=== PATIENT | female | born 2000 | race Caucasian/White ===

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

== ENCOUNTER → 2021-06-11 13:22 | Outpatient (CLI) | payer OTHER, MEDICAID, SELFPAY ==
[2021-06-11 13:53] LABS: Pregnancy Test Urine Negative (Negative)
[2021-06-11 14:25] LABS: Alanine Aminotransferase 26 IU/L (<35); Albumin 4.8 g/dL (3.5-5.0); Albumin Globulin Ratio 1.5 (1.0-2.8); Alkaline Phosphatase 80 U/L (38-126); Aspartate Aminotransferase 29 IU/L (14-36); BUN Creatinine Ratio 14.9 (6-22); Bilirubin Total 0.4 mg/dL (0.2-1.3); Blood Urea Nitrogen 10 mg/dL (7-17); Calcium 9.7 mg/dL (8.4-10.2); Carbon Dioxide 27 mmol/L (22-32); Chloride 106 mmol/L (98-107); Estimated Glomerular Filt Rate > 60.0 mL/min (>60); Globulin 3.1 g/dL (1.7-4.1); Glucose 100 mg/dL (70-100); HEMOLYSIS < 15 (0-50); Potassium 3.9 mmol/L (3.4-5.1); Sodium 141 mmol/L (137-145); Total Protein 7.9 g/dL (6.3-8.2)
[2021-06-11 14:38] LABS: Prolactin 13.2 ng/mL (3.0-18.6)
[2021-06-11 15:33] LABS: TSH w/ Reflex to FT4 0.63 uIU/mL (0.47-4.68)
== END ==
PROVIDERS: PCP Nurse Practitioner Family; Referring Provider Nurse Practitioner Family; Visit Provider Nurse Practitioner Family
DX: R11.2 Nausea with vomiting, unspecified (principal); E83.52 Hypercalcemia; N64.52 Nipple discharge; L74.510 Primary focal hyperhidrosis, axilla
CPT/HCPCS: 36415; 80053; 81025; 84146; 84443

== ENCOUNTER → 2021-06-21 12:25 | Outpatient (CLI) | payer OTHER, MEDICAID, SELFPAY ==
--- NOTE | 2021-06-21 12:26 | DI.US.S_ITS ---
ULTRASOUND OF RIGHT BREAST: 06/21/2021 CLINICAL: Nipple discharge, right breast, not bloody. No palpable masses. No prior exams were available for comparison. Color flow and real-time ultrasound of the right breast were performed. [place]rett scale images of the real-time examination were reviewed. No significant abnormalities were seen sonographically in the right breast. No ductal dilatation. No intraductal masses. IMPRESSION: BENIGN There is no sonographic evidence of malignancy. There is no abnormality seen in the right breast to correspond with the area of clinical concern and non-bloody discharge from the nipple which is consistent with physiological discharge, however, recommend clinical follow up for persistent or worsening symptoms, or development of any clinically suspicious findings. Recommend initiating routine screening mammograms at age 41. Findings and recommendations were conveyed to the patient during today's evaluation. This exam was interpreted at Station ID: [id number]. Electronically Signed By: Deny Ray M.D. aty/:06/21/2021 13:10:10 letter sent: Clinical Evaluation Ultrasound BI-RADS: 2 Benign
== END ==
PROVIDERS: PCP Nurse Practitioner Family; Referring Provider Nurse Practitioner Family; Visit Provider Nurse Practitioner Family
DX: N64.52 Nipple discharge (principal)
CPT/HCPCS: 76642

== ENCOUNTER → 2021-09-10 08:59 | Outpatient (CLI) | payer OTHER, MEDICAID, SELFPAY ==
[2021-09-10 10:20] LABS: COVID19 -Nasal RAPID Negative (Negative)
== END ==
PROVIDERS: PCP Nurse Practitioner Family; Visit Provider Surgery
DX: Z20.822 Contact with and (suspected) exposure to COVID-19; Z01.812 Encounter for preprocedural laboratory examination
CPT/HCPCS: 87635; C9803

== ENCOUNTER 2021-09-11 08:02 | Day surgery (SDC) | payer OTHER, MEDICAID, SELFPAY ==
[2021-09-11] VITALS (7 sets, daily range): BP systolic 104–123; BP diastolic 65–86; PULSE 64–95; RESP 12–19; TEMP 36.3–36.5; O2SAT 97–100; BMI 31.1
--- NOTE | 2021-09-11 | PATH_ITS ---
[facility] Accession Number: [id number] . 01 Material submitted: . colon - TRANSVERSE COLON . 02 Diagnosis: Transverse Colon, Biopsies: Colonic mucosa with a prominent benign lymphoid aggregate and patchy extravasated red blood cells in the lamina propria. Please see comment. Negative for active, chronic and microscopic colitis. Negative for dysplasia and malignancy. [facility] 09/18/2021 1533 Local . 02 Comment: There is a prominent benign lymphoid aggregate and patchy extravasated red blood cells in the lamina propria. No obvious viral cytopathic effects or parasitic organisms are identified. The morphologic appearance raises the consideration of procedure related changes, trauma/prolapse and less likely, early ischemia type changes. Additional levels were examined. . 02 Electronically signed: . Flor Guevara MD, Pathologist NPI- [id number] . 01 Gross description: . TRANSVERSE COLON: Received in formalin is 1 fragment(s) of deluca, soft tissue measuring 0.2 x 0.2 x 0.1 cm submitted entirely in 1 cassette(s) /CPE 09/12/2021 0827 Local . 02 Pathologist provided ICD-10: K62.5 . 02 CPT . 848613 Specimen Comment: A courtesy copy of this report has been sent to [phone] Performed at: 01 [facility] [address], [place], [place] [id number] MD Isaias Tabares MD Phone: [phone] Performed at: 02 [facility] [address] [place], [place] [id number] MD Flor Guevara MD Phone: [phone]
[2021-09-11] MEDS: LACTATED RINGERS 1,000 ML 200 ML IV (08:37)
--- NOTE | 2021-09-11 08:54 | PM.HP.1 ---
History of Present Illness History of Present Illness Date Patient Seen: 09/11/21 Time Patient Seen: 08:54 Chief complaint: SDC Narrative: 21-year-old woman here with a history of rectal bleeding for colonoscopy. Since he was last seen a month and half ago she has had no further rectal bleeding. She is feeling well today. Patient History Medical History Axillary hyperhidrosis Nausea and vomiting Nipple discharge in female (04/2021) Rectal bleeding (~05/2021) Family & Social History Social History: household members family Tobacco & Substance use: Smoking Status Never smoker alcohol intake never alcohol intake frequency a few times a month Substance Use Type marijuana Meds Home Medications and Allergies Home Medications Medication Instructions Recorded Confirmed Type buspirone 5 mg tablet 5 mg PO BID #180 tab 07/05/21 09/11/21 Rx duloxetine 20 mg capsule,delayed 20 mg PO BID #180 cap 07/05/21 09/11/21 Rx release Allergies Allergy/AdvReac Type Severity Reaction Status Date / Time vancomycin Allergy Severe Red man Verified 09/11/21 08:27 syndrome Exam Vital Signs (past 8 hours): - 09/11/21 08:08 Temperature 97.7 F Pulse Rate 95 H Respiratory Rate 16 Blood Pressure 123/86 Pulse Oximetry 99 Oxygen Delivery Method Room Air Narrative Exam Narrative: General adult woman alert oriented no acute distress Chest nonlabored respirations Extremities warm well perfused Assessment & Plan Assessment & Plan narrative: 21-year-old female with a history of bright red blood per rectum here for colonoscopy. Technical details of the procedure were discussed with the patient. Procedural risks including bleeding, missed diagnosis, intestinal perforation were discussed. Her questions have been answered she is in agreement with this plan. Time Spent With Patient Critical Care time: I spent a total of [] minutes of critical care time on this patient's care today; this time is exclusive of procedural time.
[2021-09-11] MEDS: fentaNYL 250 MCG/5 ML INJ 200 MCG IV (09:10)
--- NOTE | 2021-09-11 09:27 | PM.OP.COLON ---
Operative Date/Time/Diagnoses Date of procedure: 09/11/21 Time of procedure: 09:27 Pre-op diagnosis: Rectal bleeding Post-op diagnosis: other (Colitis) Procedure & Clinicians Study performed: Colonoscopy Same procedure as scheduled: Yes Indications: Blood per rectum Surgeon: Paco Abraham Procedure Notes Procedure in detail: Medications: Conscious sedation using 8mg IV midazolam and 200 mcg IV of fentanyl The history and physical was performed/updated and the patient is ASA class is 1. The procedure was discussed in detail with the patient. Potential risks complications including infection, bleeding, missed diagnosis, perforation, need for surgery, and were explained. Their questions were answered and informed consent was obtained. Patient was brought to the procedure room and placed standard monitoring equipment. The patient's vital signs were monitored continuously throughout the entire procedure. Prior to starting time-out was performed. The patient was placed in the left lateral recumbent position. Procedural sedation was administered. Examination began with a thorough inspection of the perianal area there was no evidence of fissures, fistulae, external hemorrhoids or cutaneous malignancy. The colonoscopy scope was then placed into the anal canal and was advanced to the cecum, which was identified by the ileocecal valve, the appendiceal orifice and the confluence of the taenia. The scope was then slowly withdrawn examining colon thoroughly in all directions, irrigating it of any residual stool. FINDINGS 1. Diffuse colitis through the descending and transverse colon. Biopsies taken with forceps 2. No significant hemorrhoidal disease The patient tolerated the procedure well. They will be discharged once criteria are met. The prep was of good/excellent quality. The withdrawl time was 7 minutes. The sedation time was 15 minutes. Specimen(s): other (Transverse colon) Complications: none Impression: Colitis Post-procedure Plan for aftercare: Will notify with biopsy results Disposition: same day surgery
[2021-09-11] MEDS: MIDAZOLAM 5 MG/5 ML VIAL 8 MG IV (09:29)
== END 2021-09-11 10:15 | disposition home or self-care (01) ==
PROVIDERS: PCP Nurse Practitioner Family; Referring Provider Surgery; Visit Provider Surgery
PROC: 0DJD8ZZ Inspection of Lower Intestinal Tract, Via Natural or Artificial Opening Endoscopic (ICD-10-PCS; CPT 45378; principal; 2021-09-11 09:15)
DX: K52.9 Noninfective gastroenteritis and colitis, unspecified (principal)
CPT/HCPCS: 45380; 81025; 99152; J2250; J3010

== ENCOUNTER 2021-11-29 10:39 | Emergency (ER) | payer OTHER, MEDICAID, SELFPAY ==
[2021-11-29 10:42] VITALS: BP 128/73; PULSE 71; RESP 16; TEMP 36.2; O2SAT 97; BMI 29.2
[2021-11-29] MEDS: ONDANSETRON 4 MG ODT SL (12:35)
--- NOTE | 2021-11-29 13:32 | ED.NAVMDI ---
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 She is become dizzy, weak and lightheaded. She has taken her home medications which include Zofran without much in the way of relief. She is had chills but denies any fever. She denies runny nose, sore throat or cough and she has no chest pain. She states that she stopped using THC 3 days ago completely. She denies any diarrhea or urinary complaints Related Data Previous Rx's Medication Instructions Recorded buspirone 5 mg tablet 5 mg PO BID #180 tabs 11/09/21 duloxetine 20 mg capsule,delayed 20 mg PO BID #180 caps 11/09/21 release ondansetron 4 mg disintegrating 4 mg PO TID-QID PRN nausea and 11/29/21 tablet vomiting #10 tabs pantoprazole 40 mg tablet,delayed 40 mg PO DAILY #30 tabs 11/29/21 release (Protonix) promethazine 12.5 mg rectal 12.5 mg GA Q4-6H PRN nausea and 11/29/21 suppository vomiting #12 ea Allergies Allergy/AdvReac Type Severity Reaction Status Date / Time vancomycin Allergy Severe Red man Verified 09/11/21 08:27 syndrome Review of Systems Review of Systems Narrative: GENERAL: See HPI HEENT: Denies sinus pain, ear pain, sore throat, difficulty swallowing, dizziness. RESPIRATORY: Denies dyspnea, cough, wheezing, hemoptysis, sputum. CARDIOVASCULAR: Denies chest pain, palpitations, orthopnea, edema, GASTROINTESTINAL: See HPI : Denies dysuria, frequency, incontinence, hematuria, urinary retention. MUSCULOSKELETAL: denies weakness, joint pain, or bony pain SKIN: Denies rash, skin lesions, or other NEUROLOGIC: Denies weakness, headache, numbness, change in speech, confusion, seizures, incoordination. PSYCHIATRIC: No concerning psychosocial issues. 12 point review of systems is negative except for those stated above Patient History Medical History Axillary hyperhidrosis Nausea and vomiting Nipple discharge in female (04/2021) Rectal bleeding (~05/2021) Social History household members: family Smoking Status: Never smoker second hand exposure: No alcohol intake: never substance use type: marijuana (vape, once a day) Smoking Status: Never smoker alcohol intake frequency: a few times a month Substance Use Type: marijuana Exam Narrative Exam Narrative: GENERAL: [21] year old patient appears stated age. Well-developed patient, in mild distress. HEAD: Atraumatic. Normocephalic. EYES: Pupils equal round and reactive. Extraocular motions intact. No scleral icterus. No injection or drainage. ENT: Nose without bleeding, purulent drainage. Throat without erythema, tonsillar hypertrophy or exudate. Airway patent. NECK: Trachea midline. Non tender CARDIOVASCULAR: Regular rate and rhythm without murmurs, gallops, or rubs. RESPIRATORY: Clear to auscultation. Breath sounds equal bilaterally. No wheezes, rales, or rhonchi. GASTROINTESTINAL: Abdomen soft, non-tender, nondistended. EXTREMITIES: No edema or joint tenderness. BACK: Nontender without deformity or crepitance. No flank tenderness. NEURO: AOx3. SKIN: No rash or erythema of visible areas Initial Vital Signs Initial Vital Signs: Vital Signs Temperature 97.1 F L 11/29/21 10:42 Pulse Rate 71 11/29/21 10:42 Respiratory Rate 16 11/29/21 10:42 Blood Pressure 128/73 11/29/21 10:42 Pulse Oximetry 97 11/29/21 10:42 Oxygen Delivery Method 11/29/21 10:42 Course Orders Ordered: ED Orders 11/29/21 14:00 Complete Blood Count AUTO DIFF Stat Comprehensive Metabolic Panel Stat 11/29/21 14:17 COVID19 -Nasal RAPID/Pre-Proc Stat Discontinued Medications Haloperidol (Haloperidol 5 Mg/Ml Vial) 2 mg IV NOW ONE Stop: 11/29/21 16:14 Last Admin: 11/29/21 16:24 Dose: 2 mg Documented By: AMU Sodium Chloride (Normal Saline 0.9%) 1,000 mls @ 1,000 mls/hr IV BOLUS ONE Stop: 11/29/21 14:29 Last Infusion: 11/29/21 15:20 Dose: 0 mls/hr Documented By: Admin: 11/29/21 14:16 Dose: 1,000 mls/hr Documented By: GOLDY Sodium Chloride (Normal Saline 0.9%) 1,000 mls @ 1,000 mls/hr IV BOLUS ONE Stop: 11/29/21 17:12 Last Infusion: 11/29/21 17:24 Dose: 0 mls/hr Documented By: Admin: 11/29/21 16:24 Dose: 1,000 mls/hr Documented By: GISELLE Ondansetron HCl (Ondansetron 4 Mg Odt) 4 mg SL NOW ONE Stop: 11/29/21 12:33 Last Admin: 11/29/21 12:35 Dose: 4 mg Documented By: TERE Pantoprazole Sodium (Pantoprazole 40 Mg Vial) 40 mg IV NOW ONE Stop: 11/29/21 13:31 Last Admin: 11/29/21 14:24 Dose: 40 mg Documented By: RITO Vital Signs Vital signs: Vital Signs - 8 hr 11/29/21 10:42 11/29/21 17:09 Temperature 97.1 F L Pulse Rate 71 84 Respiratory Rate 16 16 Blood Pressure 128/73 116/75 Pulse Oximetry 97 98 Oxygen Delivery Method Room Air Room Air MDM - Nausea/Vomiting/Diarrhea Lab Data Result diagrams: 11/29/21 14:00 11/29/21 14:00 Labs: Lab Results 11/29/21 11/29/21 11/29/21 Range/Units 14:00 14:00 14:17 WBC 15.7 H (4.5-11.0) X10^3/uL RBC 5.68 H (4.0-5.2) X10^6/uL Hgb 14.9 (12.0-16.0) g/dL Hct 43.5 (36-46) % MCV 76.6 L (80-100) fL MCH 26.3 (26-34) PG MCHC 34.3 (30-36) % RDW 14.9 H (11.6-14.8) % Plt Count 277 (150-400) X10^3/uL Neut % (Auto) 80.3 H (50-75) % Lymph % (Auto) 13.3 L (25-40) % Williamson % (Auto) 6.0 (3-14) % Eos % (Auto) 0.0 L (2-4) % Baso % (Auto) 0.4 (0-2) % Neut # (Auto) 31510 H (3059-8149) /uL Lymph # (Auto) 2100 (6835-4797) /uL Williamson # (Auto) 900 (0-900) /uL Eos # (Auto) 0 (0-450) /uL Baso # (Auto) 100 (0-100) /uL Sodium 139 (137-145) mmol/L Potassium 3.1 L (3.4-5.1) mmol/L Chloride 93 L (98-107) mmol/L Carbon Dioxide 29 (22-32) mmol/L BUN 21 H (7-17) mg/dL Creatinine 0.94 (0.52-1.04) mg/dL Estimated GFR > 60 (>60) mL/min BUN/Creatinine Ratio 22.3 H (6-22) Glucose 120 H (70-100) mg/dL Calcium 10.0 (8.4-10.2) mg/dL Total Bilirubin 1.2 (0.2-1.3) mg/dL AST 47 H (14-36) IU/L ALT 28 (<35) IU/L Alkaline Phosphatase 116 (38-126) U/L Total Protein 9.7 H (6.3-8.2) g/dL Albumin 5.9 H (3.5-5.0) g/dL Globulin 3.8 (1.7-4.1) g/dL Albumin/Globulin Ratio 1.6 (1.0-2.8) SARS-CoV-2 (PCR) Negative (Negative) Point of Care Testing Glucose POC 100 MDM Narrative Medical decision making narrative: Patient with reassuring history and physical exam as well as response to therapies. She feels significant improvement after fluids in the above-stated medications. We talked at length about return precautions and her questions have been answered to her apparent satisfaction Discharge Plan Departure Patient Disposition: Home Clinical Impression: Vomiting, Hyperemesis Instructions: DI for Nausea -- Adult Activity Restrictions/Additional Instructions: *You have been diagnosed with [nausea and vomiting ] *What to do: *Please continue to take your regular medications as directed. [x ] New medication prescriptions sent to your pharmacy: [ [facility] in [place]] [ ] New medication written as a paper prescription [ ] No new medications given *Please follow up with your primary care provider in 2-3 days, call for an appointment. Let them know you were seen in the Emergency Department and that we ask that you be seen in follow up. We will electronically transmit a record of today's note if your PCP is in our system * please consider a clear liquid diet for the next few days and then gradually returned to what is normal for you *If you do not have a primary care provider please contact the [facility] Resource line at [phone]. They will ask some questions about your medical history and help get you set up with a doctor in the community. *Return to Emergency Department if you should have any new, worsening or concerning symptoms, such as [fever greater than 101 F, shaking chills, worsening pain, persistent vomiting or other bothersome symptoms] Prescriptions: New promethazine 12.5 mg suppository 12.5 mg GA Q4-6H PRN (Reason: nausea and vomiting) Qty: 12 0RF pantoprazole [Protonix] 40 mg tablet,delayed release (DR/EC) 40 mg PO DAILY Qty: 30 0RF ondansetron 4 mg tablet,disintegrating 4 mg PO TID-QID PRN (Reason: nausea and vomiting) Qty: 10 0RF No Action buspirone 5 mg tablet 5 mg PO BID Qty: 180 1RF duloxetine 20 mg capsule,delayed release(DR/EC) 20 mg PO BID Qty: 180 1RF Referrals: Ivan Loredo MD [Primary Care Provider] - Stand Alone Forms: Work Release Note
[2021-11-29 14:05] LABS: Add Manual Diff / Slide Review NO; Basophils Absolute Auto 100 /uL (0-100); Basophils Percent Auto 0.4 % (0-2); Eosinophils Absolute Auto 0 /uL (0-450); Hematocrit 43.5 % (36-46); Hemoglobin 14.9 g/dL (12.0-16.0); Lymphocytes Absolute Auto 2100 /uL (1100-4500); Lymphocytes Percent Auto 13.3 % (25-40); Mean Corpuscular HGB Conc 34.3 % (30-36); Mean Corpuscular Hemoglobin 26.3 PG (26-34); Mean Corpuscular Volume 76.6 fL (80-100); Monocytes Absolute Auto 900 /uL (0-900); Neutrophils Absolute Auto 12600 /uL (1500-7000); Neutrophils Percent Auto 80.3 % (50-75); Platelet Count 277 X10^3/uL (150-400); Red Blood Cell Count 5.68 X10^6/uL (4.0-5.2); Red Cell Distribution Width 14.9 % (11.6-14.8); White Blood Cell Count 15.7 X10^3/uL (4.5-11.0)
[2021-11-29] MEDS: SODIUM CHLORIDE 0.9% 1,000 ML 1000 ML IV ×2 (14:16→16:24)
[2021-11-29 14:18] LABS: Alanine Aminotransferase 28 IU/L (<35); Albumin 5.9 g/dL (3.5-5.0); Albumin Globulin Ratio 1.6 (1.0-2.8); Alkaline Phosphatase 116 U/L (38-126); Aspartate Aminotransferase 47 IU/L (14-36); BUN Creatinine Ratio 22.3 (6-22); Bilirubin Total 1.2 mg/dL (0.2-1.3); Blood Urea Nitrogen 21 mg/dL (7-17); Carbon Dioxide 29 mmol/L (22-32); Chloride 93 mmol/L (98-107); Estimated Glomerular Filt Rate > 60 mL/min (>60); Globulin 3.8 g/dL (1.7-4.1); Glucose 120 mg/dL (70-100); HEMOLYSIS < 15 (0-50); Potassium 3.1 mmol/L (3.4-5.1); Sodium 139 mmol/L (137-145); Total Protein 9.7 g/dL (6.3-8.2)
[2021-11-29] MEDS: PANTOPRAZOLE 40 MG VIAL IV (14:24)
[2021-11-29 14:38] LABS: COVID19 -Nasal RAPID Negative (Negative)
[2021-11-29] MEDS: HALOPERIDOL 5 MG/ML VIAL 2 MG IV (16:24)
--- NOTE | 2021-11-29 17:07 | PC.NURSE ---
Pt w/ h/o hyperemesis due to THC use. Pt smoked marijuana 3 days ago and started with NV and abd pain that she was unable to control with her home zofran. ABd SNT. denies diarrhea.
[2021-11-29 17:09] VITALS: BP 116/75; PULSE 84; RESP 16; O2SAT 98
== END 2021-11-29 17:57 | disposition home or self-care (01) ==
PROVIDERS: Emergency Provider Emergency Medicine; PCP Pediatrics
DX: R11.2 Nausea with vomiting, unspecified (principal); Z20.822 Contact with and (suspected) exposure to COVID-19
CPT/HCPCS: 36415; 80053; 82962; 85025; 87635; 96361; 96374; 96375; 99284; C9803; C9113; J1630

== ENCOUNTER → 2022-05-16 11:42 | Outpatient (CLI) | payer OTHER, MEDICAID, SELFPAY ==
[2022-05-16 13:18] LABS: COVID19 -Nasal RAPID Negative (Negative)
== END ==
PROVIDERS: PCP Pediatrics; Referring Provider Orthopaedic Surgery; Visit Provider Orthopaedic Surgery
DX: Z20.822 Contact with and (suspected) exposure to COVID-19 (principal)
CPT/HCPCS: 87635; C9803

== ENCOUNTER 2022-05-17 09:23 | Day surgery (SDC) | payer OTHER, MEDICAID, SELFPAY ==
[2022-05-15 07:50] VITALS: BMI 31.8
[2022-05-17] VITALS (9 sets, daily range): BP systolic 119–148; BP diastolic 72–92; PULSE 83–108; RESP 15–28; TEMP 36–36.4; O2SAT 95–99; BMI 31.8
--- NOTE | 2022-05-17 10:08 | P.HP_ITS ---
History of Present Illness History of Present Illness Date Patient Seen: 05/17/22 Time Patient Seen: 10:08 Chief complaint: SDC Narrative: This is a 22-year-old female with history of right knee pain with confirmed medial meniscus tear on MRI. She has failed conservative measures including rest, ice, activity modifications, therapy and anti-inflammatories. She is had no changes in her symptoms since I saw her in clinic. Patient History Medical History ALL (acute lymphoid leukemia) in remission (2004) Anesthesia complication Anxiety and depression Axillary hyperhidrosis COVID-19 virus infection Nausea and vomiting Nipple discharge in female (04/2021) PTSD (post-traumatic stress disorder) Rectal bleeding (~05/2021) Tear of articular cartilage of right knee, current, initial encounter Tear of lateral meniscus of right knee Surgical History History of removal of Port-a-Cath (08/01/06) Hx of surgical procedure (08/06/04) Hx of surgical procedure (04/01/06) Family & Social History Social History: household members family Tobacco & Substance use: Tobacco type e-cigarettes Smoking Status Current every day smoker alcohol intake never alcohol intake frequency a few times a month Substance Use Type marijuana Meds Home Medications and Allergies Home Medications Medication Instructions Recorded Confirmed Type buspirone 5 mg tablet 5 mg PO BID #180 tabs 11/09/21 05/17/22 Rx duloxetine 20 mg capsule,delayed 20 mg PO BID #180 caps 11/09/21 05/17/22 Rx release Allergies Allergy/AdvReac Type Severity Reaction Status Date / Time vancomycin Allergy Severe Red man Verified 05/17/22 09:46 syndrome Review of Systems Review of Systems ROS: Yes All systems reviewed with the patient and are negative except as otherwise documented Exam Vital Signs (past 8 hours): - 05/17/22 09:48 Temperature 97.5 F L Pulse Rate 89 Respiratory Rate 20 Blood Pressure 119/84 Pulse Oximetry 98 Oxygen Delivery Method Room Air Oxygen Delivery Method Room Air Narrative Exam Narrative: HEENT: Head atraumatic eyes anicteric moist mucous membranes Cardiovascular: Palpable peripheral pulses extremities are warm and well- perfused Respiratory: Breathing comfortably on room air Neuro: No acute deficits Psychiatric: Appropriate mood and affect Musculoskeletal: Focused exam of the right lower extremity demonstrates no obvious skin lesions or deformities to the right knee. Full range of motion of the knee from 0-155 degrees, sensation intact from L2 through S2, 2+ dorsalis pedis pulse with brisk capillary refill less than 2 seconds. Assessment & Plan Assessment & Plan narrative: Assessment: 22-year-old female with right medial meniscus tear, complex Plan: We again discussed the risks and benefits of surgery which will be either debridement versus repair of her medial meniscus. Risks include but are not limited to damage to internal structures, infection, need for revision surgery. No guarantees were made. She expressed understanding with these risks and wished to go forward with surgery. Time Spent With Patient Critical Care time: I spent a total of [] minutes of critical care time on this patient's care today; this time is exclusive of procedural time.
[2022-05-17] MEDS: LACTATED RINGERS 1,000 ML 42 ML IV (10:12)
[2022-05-17] MEDS: CEFAZOLIN 2 GM/100 ML PREMIX 100 ML IV (10:33)
--- NOTE | 2022-05-17 10:51 | SUR.OPER ---
Supine on padded OR bed, head on pillow, arms secured on padded arm boards at <90 degrees abduction, legs uncrossed, safety belt at abdomen, tape over blanket over lower left leg. nathe positioner under right foot, lateral brace at right hip
[2022-05-17] MEDS: BUPIVACAINE 0.5% W/ EPI (PF) 30 ML VIAL INJ (11:02)
[2022-05-17] MEDS: HYDROMORPHONE 2 MG INJ IV ×2 (11:27→11:35)
[2022-05-17] MEDS: HYDROCODONE/ACET 5/325 TABLET 1 TAB PO ×2 (11:43→12:13)
--- NOTE | 2022-05-17 12:04 | PM.OP.1 ---
Operative Date/Time/Diagnoses Date of procedure: 05/17/22 Time of procedure: 12:04 Pre-op diagnosis: Right knee medial meniscus tear Post-op diagnosis: other (Synovitis right knee, healed medial meniscus tear) Procedure & Clinicians Procedure: Right knee arthroscopy and extensive debridement Same procedure as scheduled: Yes Surgeon: Richie Morrison [employer] Programmer: Landy Zhu Anesthesia Type: General Operative Notes Findings: Exam under anesthesia: Stable to varus and valgus stress at 0 and 30?. Stable Leni's exam and posterior drawer. Full range of motion from 0-155 Patellofemoral compartment: Normal tracking of the patella, normal appearing morphology of the trochlear groove, cartilage is intact Lateral compartment: Normal appearing meniscus without any tears or lesions, normal cartilage on the tibial and femoral surfaces Intercondylar notch: ACL and PCL intact Medial compartment: Normal-appearing medial meniscus without any lesions or tears. Cartilage appears healthy on both the tibial and femoral surfaces Gutters: No loose bodies Closure Type: primary Specimen(s): none sent Estimated Blood Loss (mL): 5 Blood products transfused: none Tourniquet time (min): 30 Procedure in detail: Description of operation: Patient was identified in the preoperative area. The correct right knee was marked with my initials. The patient was then brought into the operating room. A surgical pause was confirmed in the correct site of surgery was again identified. The patient was given perioperative IV antibiotics followed by induction of general anesthesia. A tourniquet was applied to the upper thigh. The lower extremity was then prepped and draped in a standard sterile fashion. The leg was exsanguinated with an Esmarch bandage and the tourniquet was inflated to 250 mm hg. Anteromedial and anterolateral portal incisions were made. A diagnostic arthroscopy was performed demonstrating the above-noted findings. An extensive debridement was performed of the fat pad in the patellofemoral compartment, intercondylar notch, medial and lateral compartments. After careful examination of the medial meniscus there did not appear to be any ramp lesion, meniscocapsular junction rupture, horizontal tear or vertical tear noted. This is essentially a perfectly healthy appearing meniscus despite the noted MRI findings. The arthroscopy equipment was removed and the knee was suctioned dry. Wounds were closed with Monocryl Steri-Strips and Xeroform as well as 4x4s and an Zafar wrap. She was awoken from anesthesia and transported to the postoperative recovery unit without any complications. Assisting participation: This operation could not have been safely performed (without compromising the technical results or length of the procedure) without the assistance of a skilled surgical scrub technologist. The surgical scrub technologist was medically necessary for proper positioning, retraction and manipulation of instruments, proper exposure, graft prep, and manipulation of tissue. Complications: none Post-operative Condition: stable Disposition: PACU Plan for aftercare: Weight-bearing as tolerated. Dressings may come off in 3 days and allow water to run over the dressings. If water gets under the Steri-Strips, please remove the Steri-Strips. Replace dressing for 2 more days and then remove dressings completely at 5 days. Follow up in 2 weeks for postoperative wound check.
== END 2022-05-17 12:53 | disposition home or self-care (01) ==
PROVIDERS: PCP Pediatrics; Referring Provider Orthopaedic Surgery; Visit Provider Orthopaedic Surgery
PROC: (CPT 29870; principal; 2022-05-17 10:45)
DX: M65.861 Other synovitis and tenosynovitis, right lower leg (principal); X50.1XXA Overexertion from prolonged static or awkward postures, initial encounter; Y93.01 Activity, walking, marching and hiking
CPT/HCPCS: 29876; 81025; J0690; J1170; J1885; J2250; J2405; J2704; J3010

== ENCOUNTER → 2022-08-06 10:28 | Outpatient (CLI) | payer OTHER, MEDICAID, SELFPAY ==
[2022-08-06 11:56] LABS: BUN Creatinine Ratio 17.9 (6-22); Blood Urea Nitrogen 10 mg/dL (7-17); Calcium 9.2 mg/dL (8.4-10.2); Carbon Dioxide 26 mmol/L (22-32); Chloride 102 mmol/L (98-107); Estimated Glomerular Filt Rate > 60 mL/min (>60); Glucose 101 mg/dL (70-100); HEMOLYSIS < 15 (0-50); Potassium 3.8 mmol/L (3.4-5.1); Sodium 139 mmol/L (137-145)
== END ==
PROVIDERS: PCP Family Medicine; Referring Provider Family Medicine; Visit Provider Family Medicine
DX: E87.6 Hypokalemia (principal); R94.31 Abnormal electrocardiogram [ECG] [EKG]
CPT/HCPCS: 36415; 80048

== ENCOUNTER 2025-01-31 09:35 | Observation (INO) | payer BC, SELFPAY ==
[2025-01-31] VITALS (21 sets, daily range): BP systolic 107–157; BP diastolic 58–83; PULSE 56–113; RESP 12–36; TEMP 37.1; O2SAT 98–100; BMI 29.2
--- NOTE | 2025-01-31 10:03 | ED_ITS ---
HPI - Abdominal Pain <Jacqueline Salazar DO - Last Filed: 01/31/25 15:54> General Chief Complaint: Nausea/Vomiting/Diarrhea Stated Complaint: Can't eat or drink for 4 days, tingling both feet Time Seen by Provider: 01/31/25 09:49 History of Present Illness HPI narrative: Patient is a 24-year-old female presenting today with nausea vomiting. She reports that she has been throwing up for the last 4 days. Her lips are noted to be red she says that she ate a popsicle 3 days ago. She also reports that she has not urinated in 3 days. She was seen and evaluated [facility] attempting to obtain records. Apparently she left AMA and workup was incomplete. Records reviewed report that she was admitted in 2022 over at [facility] for hypokalemia and emesis. She does admit to smoking 1 bowl of marijuana daily but has not in the last couple of days. Mom reports that this is happened to her at least 8 times in her life. Patient reports no abdominal pain only from vomiting Related Data Home Medications ?Medication ?Instructions ?Recorded ?Confirmed duloxetine 30 mg capsule,delayed 30 mg PO BID 01/31/25 01/31/25 release haloperidol 1 mg tablet 1 mg PO DAILY PRN nausea and 01/31/25 01/31/25 vomiting Previous Rx's ?Medication ?Instructions ?Recorded buspirone 5 mg tablet 5 mg PO BID #180 tabs Allergies Allergy/AdvReac Type Severity Reaction Status Date / Time vancomycin Allergy Severe Red man Verified 01/31/25 10:04 syndrome Patient History <Jacqueline Salazar DO - Last Filed: 01/31/25 15:54> Medical History (Updated 01/31/25 @ 16:46 by Bryn Toth MD) Eating disorder in remission Vapes nicotine containing substance Prolonged QT interval Cannabis hyperemesis syndrome concurrent with and due to cannabis abuse Marijuana abuse Tear of lateral meniscus of right knee Tear of articular cartilage of right knee, current, initial encounter Anesthesia complication Anxiety and depression PTSD (post-traumatic stress disorder) COVID-19 virus infection ALL (acute lymphoid leukemia) in remission (2004) Nipple discharge in female (04/2021) Rectal bleeding (~05/2021) Nausea and vomiting History of leukemia Surgical History (Updated 01/31/25 @ 16:46 by Bryn Toth MD) History of colonoscopy H/O arthroscopic knee surgery Hx of surgical procedure (04/01/06) Hx of surgical procedure (08/06/04) History of removal of Port-a-Cath (08/01/06) Social History household members: family Smoking Status: Current every day smoker second hand exposure: No alcohol intake: never substance use type: marijuana (vape, once a day) alcohol intake frequency: a few times a month Exam <Jacqueline Salazar DO - Last Filed: 01/31/25 15:54> Initial Vital Signs Initial Vital Signs: Vital Signs Pulse Rate 70 01/31/25 09:47 Pulse Oximetry 100 01/31/25 09:47 GENERAL: Alert well-appearing 24-year-old female HEENT: Head atraumatic,EOMI, pupils reactive, face symmetric, dry mucous membranes CARDIOVASCULAR: Regular rate and rhythm without murmurs, rubs or gallops. RESPIRATORY: Breath sounds equal bilaterally, no wheezes rales or rhonchi. ABDOMEN: Soft, nontender. Normoactive bowel sounds all 4 quadrants. No guarding or rebound. No right lower quadrant pain no right upper quadrant pain no lower abdominal pain EXTREMITIES: Normal range of motion, no clubbing or edema. Neurovascularly intact NEUROLOGICAL: Alert and oriented x4.Normal gait and speech. Cranial nerves II through XII grossly intact. SKIN: Warm, dry, no laceration, no petechiae, no rashes or lesions. <J Carlos Peng DO - Last Filed: 01/31/25 22:49> Initial Vital Signs Initial Vital Signs: Vital Signs Pulse Rate 70 01/31/25 09:47 Pulse Oximetry 100 01/31/25 09:47 Course <Jacqueline Salazar DO - Last Filed: 01/31/25 15:54> Orders Ordered: Buspirone HCl (Buspirone 5 Mg Tablet) 5 mg PO BID FADI Duloxetine HCl (Duloxetine 20 Mg Capsule.Dr) 20 mg PO BID FADI Haloperidol (Haloperidol 5 Mg/Ml Vial) 2 mg IV Q2HR PRN PRN Reason: Nausea And Vomiting Last Admin: 01/31/25 20:59 Dose: 2 mg Documented By: MS Dextrose/Sodium Chloride (Dextrose 5%-0.9% Ns) 1,000 mls @ 175 mls/hr IV CONT FADI Last Admin: 01/31/25 19:03 Dose: 175 mls/hr Documented By: NADINE Lorazepam (Lorazepam 2 Mg/Ml Inj) 0.25 mg IV Q4HR PRN PRN Reason: Anxiety Metoclopramide HCl (Metoclopramide 10 Mg/2 Ml Inj) 10 mg IV Q6HR PRN PRN Reason: Nausea And Vomiting Last Admin: 01/31/25 20:59 Dose: 10 mg Documented By: Naloxone HCl (Naloxone 0.4 Mg/Ml Vial) 0.2 mg IV Q2MIN PRN PRN Reason: Opiate Reversal Olanzapine (Olanzapine 2.5 Mg Tablet) 5 mg PO Q6HR PRN PRN Reason: nausea Ondansetron HCl (Ondansetron 4 Mg/2 Ml Inj) 4 mg IV Q8HR PRN PRN Reason: Nausea And Vomiting Last Admin: 01/31/25 19:03 Dose: 4 mg Documented By: NADINE Ondansetron HCl (Ondansetron 4 Mg Odt) 4 mg PO Q6H [facility] Promethazine HCl (Promethazine 12.5 Mg Supp) 12.5 mg MS Q6HR PRN PRN Reason: Nausea And Vomiting Discontinued Medications Droperidol (Droperidol 2.5 Mg/Ml Vial) 2.5 mg IV NOW ONE Stop: 01/31/25 14:21 Last Admin: 01/31/25 14:36 Dose: 2.5 mg Documented By: ELDA Sodium Chloride (Normal Saline 0.9%) 1,000 mls @ 1,000 mls/hr IV BOLUS ONE Stop: 01/31/25 10:48 Last Infusion: 01/31/25 11:17 Dose: Infused Documented By: Admin: 01/31/25 10:28 Dose: 1,000 mls/hr Documented By: ELDA POTASSIUM CHLORIDE IN WATER (Potassium Cl 10 Meq/100 Ml Edel) 10 meq in 100 mls @ 100 mls/hr IV Q1H FADI Stop: 01/31/25 14:44 Last Infusion: 01/31/25 17:21 Dose: Infused Documented By: Admin: 01/31/25 16:16 Dose: Not Given Documented By: Admin: 01/31/25 14:50 Dose: 100 mls/hr Documented By: Infusion: 01/31/25 14:27 Dose: Infused Documented By: Admin: 01/31/25 13:27 Dose: 100 mls/hr Documented By: Infusion: 01/31/25 13:01 Dose: Infused Documented By: Admin: 01/31/25 12:01 Dose: 100 mls/hr Documented By: ELDA Sodium Chloride (Normal Saline 0.9%) 1,000 mls @ 1,000 mls/hr IV BOLUS ONE Stop: 01/31/25 12:30 Last Infusion: 01/31/25 13:29 Dose: Infused Documented By: Admin: 01/31/25 12:00 Dose: 1,000 mls/hr Documented By: ELDA POTASSIUM CHLORIDE IN WATER (Potassium Cl 10 Meq/100 Ml Edel) 10 meq in 100 mls @ 100 mls/hr IV Q1H FADI Stop: 01/31/25 17:14 Last Infusion: 01/31/25 22:17 Dose: Infused Documented By: Infusion: 01/31/25 20:05 Dose: 100 mls/hr Documented By: Infusion: 01/31/25 16:45 Dose: 0 mls/hr Documented By: Admin: 01/31/25 16:16 Dose: 100 mls/hr Documented By: ELDA Metoclopramide HCl (Metoclopramide 10 Mg/2 Ml Inj) 10 mg IV NOW ONE Stop: 01/31/25 09:50 Last Admin: 01/31/25 10:26 Dose: 10 mg Documented By: ELDA Ondansetron HCl (Ondansetron 4 Mg/2 Ml Inj) 4 mg IV NOW ONE Stop: 01/31/25 11:32 Last Admin: 01/31/25 12:02 Dose: 4 mg Documented By: ELDA Ondansetron HCl (Ondansetron 4 Mg Odt) 4 mg PO Q8HR PRN PRN Reason: Nausea And Vomiting Pantoprazole Sodium (Pantoprazole 40 Mg Vial) 40 mg IV NOW ONE Stop: 01/31/25 09:50 Last Admin: 01/31/25 10:28 Dose: 40 mg Documented By: ELDA Vital Signs Vital signs: Vital Signs - 8 hr 01/31/25 15:00 01/31/25 15:00 01/31/25 15:15 Pulse Rate 71 Respiratory Rate 21 Blood Pressure 116/61 119/71 Pulse Oximetry 99 01/31/25 15:15 01/31/25 15:30 01/31/25 15:30 Pulse Rate 65 70 Respiratory Rate 30 H 19 Blood Pressure 116/70 Pulse Oximetry 99 98 <J Carlos Peng, DO - Last Filed: 01/31/25 22:49> Orders Ordered: Buspirone HCl (Buspirone 5 Mg Tablet) 5 mg PO BID FADI Duloxetine HCl (Duloxetine 20 Mg Capsule.Dr) 20 mg PO BID FADI Haloperidol (Haloperidol 5 Mg/Ml Vial) 2 mg IV Q2HR PRN PRN Reason: Nausea And Vomiting Last Admin: 01/31/25 20:59 Dose: 2 mg Documented By: Dextrose/Sodium Chloride (Dextrose 5%-0.9% Ns) 1,000 mls @ 175 mls/hr IV CONT FADI Last Admin: 01/31/25 19:03 Dose: 175 mls/hr Documented By: LDV Lorazepam (Lorazepam 2 Mg/Ml Inj) 0.25 mg IV Q4HR PRN PRN Reason: Anxiety Metoclopramide HCl (Metoclopramide 10 Mg/2 Ml Inj) 10 mg IV Q6HR PRN PRN Reason: Nausea And Vomiting Last Admin: 01/31/25 20:59 Dose: 10 mg Documented By: Naloxone HCl (Naloxone 0.4 Mg/Ml Vial) 0.2 mg IV Q2MIN PRN PRN Reason: Opiate Reversal Olanzapine (Olanzapine 2.5 Mg Tablet) 5 mg PO Q6HR PRN PRN Reason: nausea Ondansetron HCl (Ondansetron 4 Mg/2 Ml Inj) 4 mg IV Q8HR PRN PRN Reason: Nausea And Vomiting Last Admin: 01/31/25 19:03 Dose: 4 mg Documented By: LDV Ondansetron HCl (Ondansetron 4 Mg Odt) 4 mg PO Q6H [facility] Promethazine HCl (Promethazine 12.5 Mg Supp) 12.5 mg MS Q6HR PRN PRN Reason: Nausea And Vomiting Discontinued Medications Droperidol (Droperidol 2.5 Mg/Ml Vial) 2.5 mg IV NOW ONE Stop: 01/31/25 14:21 Last Admin: 01/31/25 14:36 Dose: 2.5 mg Documented By: ELDA Sodium Chloride (Normal Saline 0.9%) 1,000 mls @ 1,000 mls/hr IV BOLUS ONE Stop: 01/31/25 10:48 Last Infusion: 01/31/25 11:17 Dose: Infused Documented By: Admin: 01/31/25 10:28 Dose: 1,000 mls/hr Documented By: ELDA POTASSIUM CHLORIDE IN WATER (Potassium Cl 10 Meq/100 Ml Edel) 10 meq in 100 mls @ 100 mls/hr IV Q1H FADI Stop: 01/31/25 14:44 Last Infusion: 01/31/25 17:21 Dose: Infused Documented By: Admin: 01/31/25 16:16 Dose: Not Given Documented By: Admin: 01/31/25 14:50 Dose: 100 mls/hr Documented By: Infusion: 01/31/25 14:27 Dose: Infused Documented By: Admin: 01/31/25 13:27 Dose: 100 mls/hr Documented By: Infusion: 01/31/25 13:01 Dose: Infused Documented By: Admin: 01/31/25 12:01 Dose: 100 mls/hr Documented By: ELDA Sodium Chloride (Normal Saline 0.9%) 1,000 mls @ 1,000 mls/hr IV BOLUS ONE Stop: 01/31/25 12:30 Last Infusion: 01/31/25 13:29 Dose: Infused Documented By: Admin: 01/31/25 12:00 Dose: 1,000 mls/hr Documented By: ELDA POTASSIUM CHLORIDE IN WATER (Potassium Cl 10 Meq/100 Ml Edel) 10 meq in 100 mls @ 100 mls/hr IV Q1H FADI Stop: 01/31/25 17:14 Last Infusion: 01/31/25 22:17 Dose: Infused Documented By: Infusion: 01/31/25 20:05 Dose: 100 mls/hr Documented By: Infusion: 01/31/25 16:45 Dose: 0 mls/hr Documented By: Admin: 01/31/25 16:16 Dose: 100 mls/hr Documented By: ELDA Metoclopramide HCl (Metoclopramide 10 Mg/2 Ml Inj) 10 mg IV NOW ONE Stop: 01/31/25 09:50 Last Admin: 01/31/25 10:26 Dose: 10 mg Documented By: ELDA Ondansetron HCl (Ondansetron 4 Mg/2 Ml Inj) 4 mg IV NOW ONE Stop: 01/31/25 11:32 Last Admin: 01/31/25 12:02 Dose: 4 mg Documented By: ELDA Ondansetron HCl (Ondansetron 4 Mg Odt) 4 mg PO Q8HR PRN PRN Reason: Nausea And Vomiting Pantoprazole Sodium (Pantoprazole 40 Mg Vial) 40 mg IV NOW ONE Stop: 01/31/25 09:50 Last Admin: 01/31/25 10:28 Dose: 40 mg Documented By: ELDA Vital Signs Vital signs: Vital Signs - 8 hr 01/31/25 15:00 01/31/25 15:00 01/31/25 15:15 Pulse Rate 71 Respiratory Rate 21 Blood Pressure 116/61 119/71 Pulse Oximetry 99 01/31/25 15:15 01/31/25 15:30 01/31/25 15:30 Pulse Rate 65 70 Respiratory Rate 30 H 19 Blood Pressure 116/70 Pulse Oximetry 99 98 MDM - Abdominal Pain <Jacqueline Salazar DO - Last Filed: 01/31/25 15:54> Lab Data 01/31/25 10:05 01/31/25 17:38 Labs: Lab Results 01/31/25 01/31/25 Range/Units 10:05 10:09 WBC 12.8 H (4.5-11.0) X10^3/uL RBC 5.27 H (4.0-5.2) X10^6/uL Hgb 13.0 (12.0-16.0) g/dL Hct 39.4 (36-46) % MCV 74.7 L (80-100) fL MCH 24.8 L (26-34) PG MCHC 33.1 (30-36) % RDW 16.5 H (11.6-14.8) % Plt Count 283 (150-400) X10^3/uL Neut % (Auto) 77.2 H (50-75) % Lymph % (Auto) 17.0 L (25-40) % [place] % (Auto) 5.4 (3-14) % Eos % (Auto) 0.0 L (2-4) % Baso % (Auto) 0.4 (0-2) % Neut # (Auto) 9900 H (4337-3696) /uL Lymph # (Auto) 2200 (1247-0285) /uL [place] # (Auto) 700 (0-900) /uL Eos # (Auto) 0 (0-450) /uL Baso # (Auto) 100 (0-100) /uL Sodium 137 (137-145) mmol/L Potassium 2.8 L (3.4-5.1) mmol/L Chloride 94 L (98-107) mmol/L Carbon Dioxide 25 (22-32) mmol/L BUN 10 (7-17) mg/dL Creatinine 0.63 (0.52-1.04) mg/dL Estimated GFR > 60 (>60) mL/min BUN/Creatinine Ratio 15.9 (6-22) Glucose 97 (70-99) mg/dL Calcium 9.4 (8.4-10.2) mg/dL Magnesium 2.5 H (1.6-2.3) mg/dL Total Bilirubin 1.1 (0.2-1.3) mg/dL AST 35 (14-36) IU/L ALT 23 (<35) IU/L Alkaline Phosphatase 68 (38-126) U/L Total Protein 8.7 H (6.3-8.2) g/dL Albumin 5.2 H (3.5-5.0) g/dL Globulin 3.5 (1.7-4.1) g/dL Albumin/Globulin Ratio 1.5 (1.0-2.8) Lipase 51 (23-300) U/L Serum , Qual Negative (Negative) Point of care testing: Point of Care Testing Test Results Negative Urine Dip Bedside Urine Glucose Negative Bedside Urine Bilirubin - Negative Bedside Urine Ketone +++ 80 Urine Specific [place] 1.005 Bedside Urine Occult Blood - Negative Bedside Urine pH 7.5 Bedside Urine Protein - Negative Bedside Urine Urobilinogen - Negative Bedside Urine Nitrite - Negative Bedside Urine Leukocytes - Negative Esterase Imaging Data CT scan - abdomen/pelvis: Radiologist's Impression: PROCEDURE: CT ABDOMEN PELVIS W CON INDICATIONS: persistant nausea vomiting TECHNIQUE: After the administration of intravenous contrast, axial sections acquired from the lung bases to the pubic symphysis. Coronal and sagittal reformats were performed. For radiation dose reduction, the following was used: automated exposure control, adjustment of mA and/or kV according to patient size. COMPARISON: None. FINDINGS: Image quality: Diagnostic. Lower Chest: No significant findings. ABDOMEN: Liver: No solid mass. Gallbladder: No wall thickening or calcified stones. Biliary ducts: No biliary dilation. Pancreas: No ductal dilation. Spleen: Size is within normal limits. Adrenal Glands: No adrenal nodules. Kidneys and Ureters: Symmetric enhancement. No nephrolithiasis or hydronephrosis. No visible mass or cyst requiring follow up. No hydroureter. Stomach and Bowel: Stomach and small bowel loops are normal caliber. The appendix is not seen. Normal quantity of colonic stool. No suspicious colon wall thickening or inflammation. Peritoneum: No abnormal intraperitoneal fluid. No free air. Ventral Wall: No significant ventral hernia. Abdominal Nodes: No retroperitoneal or mesenteric adenopathy by size criteria. Vessels: Aorta and inferior vena cava are normal in size. PELVIS: Pelvic Organs: There is an involuting peripherally enhancing left ovarian follicle. Right ovary and uterus are otherwise unremarkable. Bladder: No stones or wall thickening. Pelvic Nodes: No enlarged lymph nodes. Miscellaneous: No inguinal hernias are seen. Bones: No aggressive osseous abnormality. Focal anterior disc and endplate degeneration at T9-10 incidentally noted. IMPRESSION: Involuting left ovarian corpus luteum. No other CT abnormalities. Dictated by: Yamila Perez M.D. on 01/31/2025 at 13:1 ECG Data Interpretation: Sinus rate 58 MS interval 126 QRS 100 QTC 418 no QTC prolongation no ischemia or arrhythmia MDM Narrative Medical decision making narrative: MDM CC: Vomiting Complicating co-morbidities: Daily marijuana use Data collected from: Patient Medical records reviewed: records from [facility] and previous admission in 2022 has been reviewed Differential considered: Hyperemesis cyclic vomiting secondary to marijuana obstruction electrolyte abnormality Exam documented above, pertinent findings include: Patient has some dry mucous membranes but abdomen is relatively soft nontender Lab Test results independently reviewed as above. Pertinent findings: Hypokalemia 2.8 Leukocytosis 12.8 no anemia BUN creatinine within normal limits creatinine 0.6 glucose is 97 Independently reviewed EKG as above No QTC prolongation Imaging studies independently reviewed: CT abdomen pelvis grossly normal Consultations: [ ] Treatments: 40 mEq of potassium Zofran Protonix Reglan Droperidol Re-evaluations: Patient continues to vomit despite Reglan Zofran and Protonix drip prior at all order Discussion: Patient 24-year-old female presenting to day with nausea vomiting. She does have a history of hyperemesis which is presumed to be secondary to cannabinoids. To use found to be mildly hypokalemic she is persistently vomiting despite multiple anti nausea medications. CT shows no abnormality. Patient signed out to Dr. Peng. 1500: Patient was signed out to me by Dr. Oliva, patient came in complaining of nausea and vomiting ongoing persistent for the past 3 days with some decreased urinary output but no retention hesitancy frequency or any other GI/ symptoms. Patient was at [facility] yesterday had some lab work performed but left/eloped before completion of workup. Here patient does have mild decrease in potassium 2.8 which has been repleted. CT scan of her abdomen negative for any acute findings. Patient does admit to smoking THC, most likely patient with cyclic vomiting secondary to hyperemesis cannabinoid. Patient final disposition pending re-evaluation and p.o. challenge. Patient has already received Zofran, Reglan and droperidol. 1545: Patient re-evaluated by me, patient stating that she is still having significant amount of nausea, did attempt p.o. challenge patient was unable to tolerate this, given patient with multiple administration of antiemetics and unable to tolerate p.o., patient will be admitted to the hospital for intractable nausea and vomiting and additional symptomatically. <J Carlos Peng, DO - Last Filed: 01/31/25 22:49> Lab Data Labs: Lab Results 01/31/25 01/31/25 Range/Units 10:05 10:09 WBC 12.8 H (4.5-11.0) X10^3/uL RBC 5.27 H (4.0-5.2) X10^6/uL Hgb 13.0 (12.0-16.0) g/dL Hct 39.4 (36-46) % MCV 74.7 L (80-100) fL MCH 24.8 L (26-34) PG MCHC 33.1 (30-36) % RDW 16.5 H (11.6-14.8) % Plt Count 283 (150-400) X10^3/uL Neut % (Auto) 77.2 H (50-75) % Lymph % (Auto) 17.0 L (25-40) % [place] % (Auto) 5.4 (3-14) % Eos % (Auto) 0.0 L (2-4) % Baso % (Auto) 0.4 (0-2) % Neut # (Auto) 9900 H (9692-4599) /uL Lymph # (Auto) 2200 (4805-7264) /uL [place] # (Auto) 700 (0-900) /uL Eos # (Auto) 0 (0-450) /uL Baso # (Auto) 100 (0-100) /uL Sodium 137 (137-145) mmol/L Potassium 2.8 L (3.4-5.1) mmol/L Chloride 94 L (98-107) mmol/L Carbon Dioxide 25 (22-32) mmol/L BUN 10 (7-17) mg/dL Creatinine 0.63 (0.52-1.04) mg/dL Estimated GFR > 60 (>60) mL/min BUN/Creatinine Ratio 15.9 (6-22) Glucose 97 (70-99) mg/dL Calcium 9.4 (8.4-10.2) mg/dL Magnesium 2.5 H (1.6-2.3) mg/dL Total Bilirubin 1.1 (0.2-1.3) mg/dL AST 35 (14-36) IU/L ALT 23 (<35) IU/L Alkaline Phosphatase 68 (38-126) U/L Total Protein 8.7 H (6.3-8.2) g/dL Albumin 5.2 H (3.5-5.0) g/dL Globulin 3.5 (1.7-4.1) g/dL Albumin/Globulin Ratio 1.5 (1.0-2.8) Lipase 51 (23-300) U/L Serum , Qual Negative (Negative) Point of care testing: Point of Care Testing Test Results Negative Urine Dip Bedside Urine Glucose Negative Bedside Urine Bilirubin - Negative Bedside Urine Ketone +++ 80 Urine Specific [place] 1.005 Bedside Urine Occult Blood - Negative Bedside Urine pH 7.5 Bedside Urine Protein - Negative Bedside Urine Urobilinogen - Negative Bedside Urine Nitrite - Negative Bedside Urine Leukocytes - Negative Esterase MDM Narrative Medical decision making narrative: MDM CC: Vomiting Complicating co-morbidities: Daily marijuana use Data collected from: Patient Medical records reviewed: records from [facility] and previous admission in 2022 has been reviewed Differential considered: Hyperemesis cyclic vomiting secondary to marijuana obstruction electrolyte abnormality Exam documented above, pertinent findings include: Patient has some dry mucous membranes but abdomen is relatively soft nontender Lab Test results independently reviewed as above. Pertinent findings: Hypokalemia 2.8 Leukocytosis 12.8 no anemia BUN creatinine within normal limits creatinine 0.6 glucose is 97 Independently reviewed EKG as above No QTC prolongation Imaging studies independently reviewed: CT abdomen pelvis grossly normal Consultations: [ ] Treatments: 40 mEq of potassium Zofran Protonix Reglan Droperidol Re-evaluations: Patient continues to vomit despite Reglan Zofran and Protonix drip prior at all order Discussion: Patient 24-year-old female presenting to day with nausea vomiting. She does have a history of hyperemesis which is presumed to be secondary to cannabinoids. To use found to be mildly hypokalemic she is persistently vomiting despite multiple anti nausea medications. CT shows no abnormality. Patient signed out to Dr. Peng. 1500: Patient was signed out to me by Dr. Oliva, patient came in complaining of nausea and vomiting ongoing persistent for the past 3 days with some decreased urinary output but no retention hesitancy frequency or any other GI/ symptoms. Patient was at [facility] yesterday had some lab work performed but left/eloped before completion of workup. Here patient does have mild decrease in potassium 2.8 which has been repleted. CT scan of her abdomen negative for any acute findings. Patient does admit to smoking THC, most likely patient with cyclic vomiting secondary to hyperemesis cannabinoid. Patient final disposition pending re-evaluation and p.o. challenge. Patient has already received Zofran, Reglan and droperidol. 1545: Patient re-evaluated by me, patient stating that she is still having significant amount of nausea, did attempt p.o. challenge patient was unable to tolerate this, given patient with multiple administration of antiemetics and unable to tolerate p.o., patient will be admitted to the hospital for intractable nausea and vomiting and additional symptomatically. The patient's management plan was discussed Dr. Toth, who agrees to admit the patient to their service and assumes care of this patient at this time. Full admission orders will be placed by the primary team. Discharge Plan Departure Patient Disposition: Admitted as Observation Clinical Impression: Intractable nausea and vomiting Admit Date/Time: 01/31/25 15:55 Admit Provider: Bryn Toth
[2025-01-31 10:20] LABS: Add Manual Diff / Slide Review NO; Hematocrit 39.4 % (36-46); Hemoglobin 13.0 g/dL (12.0-16.0); Lymphocytes Absolute Auto 2200 /uL (1100-4500); Mean Corpuscular HGB Conc 33.1 % (30-36); Mean Corpuscular Hemoglobin 24.8 PG (26-34); Mean Corpuscular Volume 74.7 fL (80-100); Platelet Count 283 X10^3/uL (150-400)
[2025-01-31] MEDS: METOCLOPRAMIDE 10 MG/2 ML INJ IV ×2 (10:26→20:59)
[2025-01-31 10:28] LABS: Pregnancy Test Serum,Qual Negative (Negative)
[2025-01-31] MEDS: PANTOPRAZOLE 40 MG VIAL IV (10:28)
[2025-01-31] MEDS: SODIUM CHLORIDE 0.9% 1,000 ML 1000 ML IV ×2 (10:28→12:00)
--- NOTE | 2025-01-31 10:29 | EKG_ITS ---
[address] [id number] [address] [address] Test Date: 2025-01-31 Pat Name: Katherine Norris Department: Room: Gender: Female [employer] Operator: DUONG : 2000 Requested By: Order Number: [id number] Reading MD: Parish Brownlee MD Measurements Intervals [place] Rate: 58 P: 13 MO: 126 QRS: 66 QRSD: 100 T: 22 QT: 426 QTc: 418 Interpretive Statements Sinus bradycardia Electronically Signed On 01-31-2025 15:07:30 PDT by Parish Brownlee MD
[2025-01-31 10:32] LABS: Alanine Aminotransferase 23 IU/L (<35); Albumin 5.2 g/dL (3.5-5.0); Albumin Globulin Ratio 1.5 (1.0-2.8); Alkaline Phosphatase 68 U/L (38-126); Blood Urea Nitrogen 10 mg/dL (7-17); Calcium 9.4 mg/dL (8.4-10.2); Carbon Dioxide 25 mmol/L (22-32); Chloride 94 mmol/L (98-107); Estimated Glomerular Filt Rate > 60 mL/min (>60); Globulin 3.5 g/dL (1.7-4.1); Glucose 97 mg/dL (70-99); HEMOLYSIS 38 (0-50); Lipase 51 U/L (23-300); Potassium 2.8 mmol/L (3.4-5.1); Sodium 137 mmol/L (137-145); Total Protein 8.7 g/dL (6.3-8.2)
[2025-01-31 10:57] LABS: Magnesium 2.5 mg/dL (1.6-2.3)
--- NOTE | 2025-01-31 11:31 | DI.CT.S_ITS ---
PROCEDURE: CT ABDOMEN PELVIS W CON INDICATIONS: persistant nausea vomiting TECHNIQUE: After the administration of intravenous contrast, axial sections acquired from the lung bases to the pubic symphysis. Coronal and sagittal reformats were performed. For radiation dose reduction, the following was used: automated exposure control, adjustment of mA and/or kV according to patient size. COMPARISON: None. FINDINGS: Image quality: Diagnostic. Lower Chest: No significant findings. ABDOMEN: Liver: No solid mass. Gallbladder: No wall thickening or calcified stones. Biliary ducts: No biliary dilation. Pancreas: No ductal dilation. Spleen: Size is within normal limits. Adrenal Glands: No adrenal nodules. Kidneys and Ureters: Symmetric enhancement. No nephrolithiasis or hydronephrosis. No visible mass or cyst requiring follow up. No hydroureter. Stomach and Bowel: Stomach and small bowel loops are normal caliber. The appendix is not seen. Normal quantity of colonic stool. No suspicious colon wall thickening or inflammation. Peritoneum: No abnormal intraperitoneal fluid. No free air. Ventral Wall: No significant ventral hernia. Abdominal Nodes: No retroperitoneal or mesenteric adenopathy by size criteria. Vessels: Aorta and inferior vena cava are normal in size. PELVIS: Pelvic Organs: There is an involuting peripherally enhancing left ovarian follicle. Right ovary and uterus are otherwise unremarkable. Bladder: No stones or wall thickening. Pelvic Nodes: No enlarged lymph nodes. Miscellaneous: No inguinal hernias are seen. Bones: No aggressive osseous abnormality. Focal anterior disc and endplate degeneration at T9-10 incidentally noted. IMPRESSION: Involuting left ovarian corpus luteum. No other CT abnormalities. Dictated by: Yamila Perez M.D. on 01/31/2025 at 13:12 Approved by: Yamila Perez M.D. on 01/31/2025 at 13:16
[2025-01-31] MEDS: POTASSIUM CHLORIDE IN WATER 10 MEQ/100 ML PIGGYBACK 100 MEQ IV ×4 (12:01→16:16)
[2025-01-31] MEDS: ONDANSETRON 4 MG/2 ML INJ IV ×2 (12:02→19:03)
[2025-01-31] MEDS: droPERidol 2.5 MG/ML VIAL IV (14:36)
--- NOTE | 2025-01-31 16:02 | PM.HP.1 ---
History of Present Illness History of Present Illness Date Patient Seen: 01/31/25 Chief complaint: Can't eat or drink for 4 days, tingling both feet Narrative: This is a 24-year-old female with a history of childhood ALL, prolonged QT interval, cannabis hyperemesis, anxiety, depression and PTSD who presents with 3 days of severe nausea and vomiting. Her last episode for cannabinoid hyperemesis syndrome was at [facility] on January 08. She was there for 5 days. She says that her hospitalizations generally last that long. She can not recall any particular medication that works better than any other. In the ED she was given Reglan, then Zofran and then droperidol without any visible change. Before coming in she had tried Haldol which she apparently received at her last hospitalization. Her potassium is 2.8 so she has received a 40 mEq IV infusion that will be followed up by a potassium level soon. The QT interval today is 418. 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 ? She says that her episodes tend to come on during periods of stress. She has a very flat affect and is not enthusiastic about answering questions or discussing what her stress is. An older female who appears to be her mother is present and assists with history taking. The patient does not have any recollection who prescribes her psychiatric medications but her mother suggests that it is the [facility] in [place]. [facility] Medical History (Updated 01/31/25 @ 16:46 by Bryn Toth MD) Eating disorder in remission Vapes nicotine containing substance Prolonged QT interval Cannabis hyperemesis syndrome concurrent with and due to cannabis abuse Marijuana abuse Tear of lateral meniscus of right knee Tear of articular cartilage of right knee, current, initial encounter Anesthesia complication Anxiety and depression PTSD (post-traumatic stress disorder) COVID-19 virus infection ALL (acute lymphoid leukemia) in remission (2004) Nipple discharge in female (04/2021) Rectal bleeding (~05/2021) Nausea and vomiting History of leukemia Surgical History (Updated 01/31/25 @ 16:46 by Bryn Toth MD) History of colonoscopy H/O arthroscopic knee surgery Hx of surgical procedure (04/01/06) Hx of surgical procedure (08/06/04) History of removal of Port-a-Cath (08/01/06) Social History household members: family Smoking Status: Current every day smoker second hand exposure: No alcohol intake: never substance use type: marijuana (vape, once a day) Meds Home Medications and Allergies Home Medications ?Medication ?Instructions ?Recorded ?Confirmed ?Type buspirone 5 mg tablet 5 mg PO BID #180 tabs 06/19/22 08/06/22 Rx duloxetine 20 mg capsule,delayed 20 mg PO BID #180 caps 06/19/22 08/06/22 Rx release Allergies Allergy/AdvReac Type Severity Reaction Status Date / Time vancomycin Allergy Severe Red man Verified 01/31/25 10:04 syndrome Review of Systems Review of Systems Narrative: Positive for a stressful period in her life, nausea, vomiting, weakness. Negative for fevers, chills, sweats, abdominal pain, chest pain, coughing, dysuria, bleeding, rashes, joint pain, sore throat, headache. Exam Vital Signs (past 8 hours): - 01/31/25 09:47 01/31/25 10:00 01/31/25 10:03 Temperature 98.7 F Pulse Rate 70 68 68 Respiratory Rate 18 18 Blood Pressure 124/78 Pulse Oximetry 100 100 100 Oxygen Delivery Method Room Air 01/31/25 10:09 01/31/25 10:09 01/31/25 10:30 Temperature Pulse Rate 64 Respiratory Rate 13 Blood Pressure 113/66 113/61 Pulse Oximetry 99 Oxygen Delivery Method 01/31/25 10:30 01/31/25 11:00 01/31/25 11:00 Temperature Pulse Rate 64 60 Respiratory Rate 28 H 27 H Blood Pressure 119/62 Pulse Oximetry 98 99 Oxygen Delivery Method 01/31/25 11:30 01/31/25 11:30 01/31/25 12:05 Temperature Pulse Rate 71 113 H Respiratory Rate 18 20 Blood Pressure 107/58 L Pulse Oximetry 100 100 Oxygen Delivery Method 01/31/25 12:07 01/31/25 12:07 01/31/25 12:25 Temperature Pulse Rate 94 H 66 Respiratory Rate 20 12 Blood Pressure 157/79 H Pulse Oximetry 99 99 Oxygen Delivery Method 01/31/25 12:25 01/31/25 12:30 01/31/25 12:30 Temperature Pulse Rate 69 Respiratory Rate 12 Blood Pressure 141/74 H 134/71 Pulse Oximetry 98 Oxygen Delivery Method 01/31/25 13:00 01/31/25 13:00 01/31/25 13:30 Temperature Pulse Rate 72 Respiratory Rate 14 Blood Pressure 121/61 138/69 Pulse Oximetry 99 Oxygen Delivery Method 01/31/25 13:30 01/31/25 14:00 01/31/25 14:00 Temperature Pulse Rate 64 56 L Respiratory Rate 30 H 36 H Blood Pressure 131/82 Pulse Oximetry 100 Oxygen Delivery Method Oxygen Delivery Method Room Air Narrative Exam Narrative: Alert and oriented x3. Appears to be in moderate distress from ongoing nausea. Very flat affect. Significant memory gaps. Pupils are equally round and reactive to light and accommodation. Extraocular muscles are intact. Sclerae are pink and nonicteric. Throat looks normal. No lymph nodes are felt head, neck, supraclavicular area. There is no thyromegaly. JVD is less than 6 cm. No carotid bruits heard. Heart is regular rate and rhythm without murmur and lungs are clear to auscultation bilaterally. Abdomen is soft, nontender, bowel sounds active, no organomegaly. Extremities have no ankle edema. Motor function is 5/5 throughout. Cranial nerves 2-12 test intact. No tremor. Reflexes are symmetric. Objective Labs 01/31/25 10:05 01/31/25 10:05 Labs: Laboratory Results - last 24 hr 01/31/25 01/31/25 10:05 10:09 WBC 12.8 H RBC 5.27 H Hgb 13.0 Hct 39.4 MCV 74.7 L MCH 24.8 L MCHC 33.1 RDW 16.5 H Plt Count 283 Neut % (Auto) 77.2 H Lymph % (Auto) 17.0 L [place] % (Auto) 5.4 Eos % (Auto) 0.0 L Baso % (Auto) 0.4 Neut # (Auto) 9900 H Lymph # (Auto) 2200 [place] # (Auto) 700 Eos # (Auto) 0 Baso # (Auto) 100 Sodium 137 Potassium 2.8 L Chloride 94 L Carbon Dioxide 25 BUN 10 Creatinine 0.63 Estimated GFR > 60 BUN/Creatinine Ratio 15.9 Glucose 97 Calcium 9.4 Magnesium 2.5 H Total Bilirubin 1.1 AST 35 ALT 23 Alkaline Phosphatase 68 Total Protein 8.7 H Albumin 5.2 H Globulin 3.5 Albumin/Globulin Ratio 1.5 Lipase 51 Serum , Qual Negative Assessment & Plan Assessment & Plan narrative: This is a 24-year-old female with a history of childhood ALL, prolonged QT interval, cannabis hyperemesis, anxiety, depression and PTSD who presents with 3 days of severe nausea and vomiting. Her last episode for cannabinoid hyperemesis syndrome was at [facility] on January 08. She was there for 5 days. She says that her hospitalizations generally last that long. She can not recall any particular medication that works better than any other. Vomiting of cannabinoid hyperemesis syndrome, present on admission, active. -daily cannabinoid use and confirms the classic nausea response to a hot shower. -patient notes a vomiting relationship/response to increased life stresses. -white blood count 12.8, potassium 2.8. -last hospitalization 3 weeks ago at [facility] apparently took 5 days to recover well enough to discharge. -tried haloperidol at home. Has not responded so far to Zofran/droperidol/Reglan in the ED. -IV fluid D5 NS 175 mL/hr, Phenergan p.o. as needed, ondansetron as needed. -follow and supplement potassium. Hypokalemia, present on admission. Active. -secondary to prolonged vomiting -40 mEq IV in ED, follow up and supplement. Colonoscopy in 2021 done for rectal bleeding with clinical findings of diffuse colitis and pathology report as follows. --There is a prominent benign lymphoid aggregate and patchy extravasated red blood cells in the lamina propria. No obvious viral cytopathic effects or parasitic organisms are identified. The morphologic appearance raises the consideration of procedure related changes, trauma/prolapse and less likely, early ischemia type changes. -no current reports of diarrhea or blood in stool. History of eating disorder apparent bulimia type -no current symptoms per mother. PTSD/depression/anxiety -continue buspirone and duloxetine -presents with flat affect. History of prolonged QT interval, present on admission. Chronic. -QT interval of 418 on ED EKG. SCD for DVT prevention Time-Based Coding :: [TOTAL MINUTES] spent with patient and on the chart (including review of chart, obtaining history, exam, reviewing outside data, placing orders, documenting exam and treatment plan, and counseling patient) on [DATE].
--- NOTE | 2025-01-31 16:18 | PC.NURSE ---
Addendum entered by Krissy Mackenzie RN 01/31/25 16:21: ... pharmacy manually ordered the fourth and final bag. Total bags of potassium given = 4 Original Note: 4th bag of Potassium ordered as a single dose per pharmacy. Initial protocol requested 4 bags in sequence but [facility] dropped the 4th bag so pharmacy was called and they manually oredered
--- NOTE | 2025-01-31 16:46 | PC.NURSE ---
Final bag of potassium running at time of D/C from ED to acute care, admitting RN aware and report given.
[2025-01-31 18:00] LABS: HEMOLYSIS < 15 (0-50); Potassium 3.7 mmol/L (3.4-5.1)
[2025-01-31] MEDS: DEXTROSE 5%-0.9% NS 1,000 ML 175 ML IV (19:03)
[2025-01-31] MEDS: HALOPERIDOL 5 MG/ML VIAL 2 MG IV ×2 (20:59→22:59)
[2025-02-01] MEDS: CALCIUM CARBONATE 500 MG TAB PO (00:31)
[2025-02-01] MEDS: DEXTROSE 5%-0.9% NS 1,000 ML 175 ML IV ×4 (00:31→21:05)
[2025-02-01] MEDS: HALOPERIDOL 5 MG/ML VIAL 2 MG IV ×2 (00:55→04:50)
--- NOTE | 2025-02-01 03:30 | PC.NURSE ---
Pt c/o nausea and being unable to tolerate any PO medications, pt receiving haldol IV to help with nausea. Bowel tones are diminished. Unable to measure any vomiting so far.
[2025-02-01 04:22] LABS: Add Manual Diff / Slide Review NO; Hematocrit 38.4 % (36-46); Hemoglobin 12.8 g/dL (12.0-16.0); Lymphocytes Absolute Auto 3400 /uL (1100-4500); Mean Corpuscular HGB Conc 33.4 % (30-36); Mean Corpuscular Hemoglobin 25.2 PG (26-34); Mean Corpuscular Volume 75.5 fL (80-100); Platelet Count 228 X10^3/uL (150-400)
[2025-02-01 04:40] LABS: Blood Urea Nitrogen 3 mg/dL (7-17); Calcium 8.8 mg/dL (8.4-10.2); Carbon Dioxide 25 mmol/L (22-32); Chloride 103 mmol/L (98-107); Estimated Glomerular Filt Rate > 60 mL/min (>60); Glucose 132 mg/dL (70-99); HEMOLYSIS < 15 (0-50); Potassium 3.1 mmol/L (3.4-5.1); Sodium 138 mmol/L (137-145)
[2025-02-01] MEDS: METOCLOPRAMIDE 10 MG/2 ML INJ IV ×2 (06:52→18:12)
[2025-02-01] MEDS: POTASSIUM CHLORIDE IN WATER 10 MEQ/100 ML PIGGYBACK 100 MEQ IV ×4 (06:55→12:27)
--- NOTE | 2025-02-01 07:23 | P.PN_ITS ---
Subjective Subjective Date Patient Seen: 02/01/25 Interval history: This is a 24-year-old female with a history of childhood ALL, prolonged QT interval, cannabis hyperemesis, anxiety, depression and PTSD who presented with 3 days of severe nausea and vomiting. Her last episode of cannabinoid hyperemesis syndrome was at [facility] on January 08. She says that she was there for 5 days. She says that her hospitalizations generally last that long. She can not recall any particular medication that works better than any other. In the ED she was given Reglan, then Zofran and then droperidol without any visible change. Before coming in she had tried Haldol which she apparently received at her last hospitalization. Her potassium is 2.8 so she has received a 40 mEq IV infusion that will be followed up by a potassium level soon. The QT interval today is 418. 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 ? She says that her episodes tend to come on during periods of stress. She has a very flat affect and is not enthusiastic about answering questions or discussing what her stress is. An older female who appears to be her mother is present and assists with history taking. The patient does not have any recollection who prescribes her psychiatric medications but her mother suggests that it is the [facility] in [place]. 02/01: She complains of constant nausea but looks more relaxed. She is apparently not receive the olanzapine yet so that will be tried today. She continues to request ?an antipsychotic for nausea ?. 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 The potassium went up to 3.7 last night and then came back down to 3.1 today so she will be supplemented again. Meds Home Medications and Allergies Home Medications ?Medication ?Instructions ?Recorded ?Confirmed ?Type buspirone 5 mg tablet 5 mg PO BID #180 tabs 06/19/22 08/06/22 Rx duloxetine 20 mg capsule,delayed 20 mg PO BID #180 caps 06/19/22 08/06/22 Rx release Allergies Allergy/AdvReac Type Severity Reaction Status Date / Time vancomycin Allergy Severe Red man Verified 01/31/25 10:04 syndrome Assessment & Plan Vomiting of cannabinoid hyperemesis syndrome, present on admission, active. -daily cannabinoid use and she confirms the classic nausea improvement with a hot shower. 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 -white blood count 12.8, potassium 2.8. -last hospitalization 3 weeks ago at [facility] apparently took 5 days to recover well enough to discharge. -tried haloperidol at home. Has not responded so far to Zofran/droperidol/Reglan in the ED. -IV fluid D5 NS 175 mL/hr, Phenergan p.o. as needed, ondansetron as needed. -Trial of Olanzapine -follow and supplement potassium. Hypokalemia, present on admission. Active. -secondary to prolonged vomiting -40 mEq IV in ED, follow up and supplement. -02/01 3.1, down from 3.7 after ED infusion. Giving additional 40 meq of KCL IV. Colonoscopy in 2021 done for rectal bleeding with clinical findings of diffuse colitis and pathology report as follows. --There is a prominent benign lymphoid aggregate and patchy extravasated red blood cells in the lamina propria. No obvious viral cytopathic effects or parasitic organisms are identified. The morphologic appearance raises the consideration of procedure related changes, trauma/prolapse and less likely, early ischemia type changes. -no current reports of diarrhea or blood in stool. History of eating disorder apparent bulimia type -no current symptoms per mother. PTSD/depression/anxiety -continue buspirone and duloxetine -presents with flat affect. History of prolonged QT interval, present on admission. Chronic. -QT interval of 418 on ED EKG. SCD for DVT prevention Exam Vital Signs (past 8 hours): Oxygen Delivery Method Room Air Narrative Exam Narrative: Alert and oriented x3. No apparent distress. Her affect is somewhat expanded compared to the ?flat? presentation from yesterday. She looks more relaxed. Heart is regular rate and rhythm without murmur. Lungs are clear to auscultation bilaterally. Abdomen is mildly tender. Extremities no ankle edema. Objective Labs 02/01/25 04:11 02/01/25 04:11 Labs: Laboratory Results - last 24 hr 01/31/25 01/31/25 01/31/25 10:05 10:09 17:38 WBC 12.8 H RBC 5.27 H Hgb 13.0 Hct 39.4 MCV 74.7 L MCH 24.8 L MCHC 33.1 RDW 16.5 H Plt Count 283 Neut % (Auto) 77.2 H Lymph % (Auto) 17.0 L [place] % (Auto) 5.4 Eos % (Auto) 0.0 L Baso % (Auto) 0.4 Neut # (Auto) 9900 H Lymph # (Auto) 2200 [place] # (Auto) 700 Eos # (Auto) 0 Baso # (Auto) 100 Sodium 137 Potassium 2.8 L 3.7 Chloride 94 L Carbon Dioxide 25 BUN 10 Creatinine 0.63 Estimated GFR > 60 BUN/Creatinine Ratio 15.9 Glucose 97 Calcium 9.4 Magnesium 2.5 H Total Bilirubin 1.1 AST 35 ALT 23 Alkaline Phosphatase 68 Total Protein 8.7 H Albumin 5.2 H Globulin 3.5 Albumin/Globulin Ratio 1.5 Lipase 51 Serum , Qual Negative 02/01/25 04:11 WBC 10.7 RBC 5.08 Hgb 12.8 Hct 38.4 MCV 75.5 L MCH 25.2 L MCHC 33.4 RDW 16.1 H Plt Count 228 Neut % (Auto) 58.9 Lymph % (Auto) 32.0 [place] % (Auto) 8.2 Eos % (Auto) 0.3 L Baso % (Auto) 0.6 Neut # (Auto) 6300 Lymph # (Auto) 3400 [place] # (Auto) 900 Eos # (Auto) 0 Baso # (Auto) 100 Sodium 138 Potassium 3.1 L Chloride 103 Carbon Dioxide 25 BUN 3 L Creatinine 0.60 Estimated GFR > 60 BUN/Creatinine Ratio 5.0 L Glucose 132 H Calcium 8.8 Magnesium Total Bilirubin AST ALT Alkaline Phosphatase Total Protein Albumin Globulin Albumin/Globulin Ratio Lipase Serum , Qual [facility] Medical History (Updated 01/31/25 @ 16:46 by Bryn Toth MD) Eating disorder in remission Vapes nicotine containing substance Prolonged QT interval Cannabis hyperemesis syndrome concurrent with and due to cannabis abuse Marijuana abuse Tear of lateral meniscus of right knee Tear of articular cartilage of right knee, current, initial encounter Anesthesia complication Anxiety and depression PTSD (post-traumatic stress disorder) COVID-19 virus infection ALL (acute lymphoid leukemia) in remission (2004) Nipple discharge in female (04/2021) Rectal bleeding (~05/2021) Nausea and vomiting History of leukemia Surgical History (Updated 01/31/25 @ 16:46 by Bryn Toth MD) History of colonoscopy H/O arthroscopic knee surgery Hx of surgical procedure (04/01/06) Hx of surgical procedure (08/06/04) History of removal of Port-a-Cath (08/01/06) Social History household members: family Smoking Status: Current every day smoker second hand exposure: No alcohol intake: never substance use type: marijuana (vape, once a day) Assessment & Plan Time-Based Coding :: [TOTAL MINUTES] spent with patient and on the chart (including review of chart, obtaining history, exam, reviewing outside data, placing orders, documenting exam and treatment plan, and counseling patient) on [DATE]. Quality VTE Deep Vein Thrombosis/Pulmonary Embolism Present on Admission: No
[2025-02-01 08:00] VITALS: BP 108/68; PULSE 65; RESP 16; TEMP 35.9; O2SAT 100
[2025-02-01] MEDS: ACETAMINOPHEN 325 MG TABLET 650 MG PO (09:06)
--- NOTE | 2025-02-01 09:14 | CM.DANOTE ---
Initial DCP Assessment Note. Review EMR and PT Interview. Met with patient at bedside to discuss discharge needs. Patient lives with her parent's in a home and is independent at baseline. Nausea and vomiting improved. PT is able to tolerate sips of water. Recent AMA from [facility] with same symptoms. Daily marijuana 1 bowl. PT's mother reports that she has had 8 prior similar episodes to this admission. Payor: NICOLA CUELLAR PCP: [facility], unspecified by patient. Summary & Plan: 24 y/o female arrived to ED via private auto c/o nausea and vomiting. Admit OBS Dx. Cannabinoid Hyperemesis. Plan to treat N&V, diet as tolerated, monitor and replace electrolytes. Home with non needs when medically stable. Father will transport home upon discharge. 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 Insurance Other (enter in Comment) Insurance Comment NICOLA CUELLAR Advance Directives? No History Provided By Patient Has Patient been No admitted in last 30 days? Prior Living House Arrangements Household Members family Type of Drives own vehicle transporation used prior to admit Independent with ADL Yes 's Is patient alert and Yes oriented? Caregiver for No Another Barriers to No Discharge Comment PT's Dad will take PT home upon DC. Discharge Plan Home Referrals Initiated None needed Medicare Choice List No Provided Whiteboard Updated No in Patient Room with name and ext. # of Diagrammer Review Status In Process Please Provide Date 02/01/25 Initial DC Assessment Was Performed Next Review Type Continued Stay Review
[2025-02-01] MEDS: ONDANSETRON 4 MG/2 ML INJ IV (12:26)
[2025-02-01] MEDS: PROMETHAZINE 12.5 MG SUPP PR (13:40)
[2025-02-01 20:00] VITALS: BP 141/88; PULSE 72; RESP 14; TEMP 36.2; O2SAT 100
[2025-02-02] MEDS: DEXTROSE 5%-0.9% NS 1,000 ML 175 ML IV ×3 (02:40→15:36)
[2025-02-02 04:44] LABS: Calcium 9.2 mg/dL (8.4-10.2); Carbon Dioxide 21 mmol/L (22-32); Chloride 103 mmol/L (98-107); Estimated Glomerular Filt Rate > 60 mL/min (>60); Glucose 151 mg/dL (70-99); HEMOLYSIS < 15 (0-50); Potassium 3.1 mmol/L (3.4-5.1); Sodium 138 mmol/L (137-145)
[2025-02-02] MEDS: CALCIUM CARBONATE 500 MG TAB PO ×2 (04:51→12:51)
[2025-02-02 05:14] LABS: Blood Urea Nitrogen < 2 mg/dL (7-17)
[2025-02-02] MEDS: HALOPERIDOL 5 MG/ML VIAL 2 MG IV (06:33)
--- NOTE | 2025-02-02 10:28 | CM.DPC ---
DCP Cont. Reviewed EMR and team rounds for pt's medical status and updates. Met with pt at bedside. She shared that she does feel like she is improving, but still feels nauseous. ENGRAVER JEWELRY updated her that during our team rounds, that the Hospitalist felt like she only needed 1-more day before being medically ready for home d/c. There is concern amount the AC team that pt is vaping during her shower. ENGRAVER JEWELRY casually inquired if she vapes, which she does. ENGRAVER JEWELRY explained that should she become uncomfortable, she could ask us for a nicotine patch. She stated that she can wait until she discharges. ENGRAVER JEWELRY gently replied that to just let us know, as there is no vaping allowed in the hospital, she acknowledged understanding of this.
[2025-02-02] MEDS: POTASSIUM CHLORIDE IN WATER 10 MEQ/100 ML PIGGYBACK 100 MEQ IV ×4 (10:30→14:08)
--- NOTE | 2025-02-02 12:36 | PM.PN.1 ---
Subjective Subjective Interval history: S: She was still nauseated but does want some Tums and ice water. She lives in [place], and notes that her episodic nausea and vomiting typically follows stress. She recently had stress at work. Exam Vital Signs (past 8 hours): Oxygen Delivery Method Room Air Oxygen Flow Rate 0 Narrative Exam Narrative: NAD, alert and oriented. Fluent speech. Lungs are clear, normal rate and effort. Heart is regular, no murmur gallop or rub. Abdomen is soft, non distended. Extremities are free of edema. Objective Labs 02/01/25 04:11 02/02/25 04:10 Labs: Laboratory Results - last 24 hr 02/02/25 04:10 Sodium 138 Potassium 3.1 L Chloride 103 Carbon Dioxide 21 L BUN < 2 L Creatinine 0.48 L Estimated GFR > 60 BUN/Creatinine Ratio 4.2 L Glucose 151 H Calcium 9.2 PFSH Medical History Eating disorder in remission Vapes nicotine containing substance Prolonged QT interval Cannabis hyperemesis syndrome concurrent with and due to cannabis abuse Marijuana abuse Tear of lateral meniscus of right knee Tear of articular cartilage of right knee, current, initial encounter Anesthesia complication Anxiety and depression PTSD (post-traumatic stress disorder) COVID-19 virus infection ALL (acute lymphoid leukemia) in remission (2004) Nipple discharge in female (04/2021) Rectal bleeding (~05/2021) Nausea and vomiting History of leukemia Surgical History History of colonoscopy H/O arthroscopic knee surgery Hx of surgical procedure (04/01/06) Hx of surgical procedure (08/06/04) History of removal of Port-a-Cath (08/01/06) Social History household members: family Smoking Status: Current every day smoker second hand exposure: No alcohol intake: never substance use type: marijuana (vape, once a day) Assessment & Plan Assessment & Plan narrative: 1. Vomiting of cannabinoid hyperemesis syndrome, present on admission, active. -daily cannabinoid use and she confirms the classic nausea improvement with a hot shower. 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 2. Hypokalemia, present on admission. Active. -secondary to prolonged vomiting -40 mEq IV in ED, follow up and supplement. -02/01 3.1, down from 3.7 after ED infusion. Giving additional 40 meq of KCL IV. 3. History of eating disorder apparent bulimia type -no current symptoms per mother. 4. PTSD/depression/anxiety -continue buspirone and duloxetine -presents with flat affect. 5. History of prolonged QT interval, present on admission. Chronic. -QT interval of 418 on ED EKG. PLAN: -continue symptomatic treatment of her nausea and vomiting. -encourage oral intake. Time-Based Coding :: [TOTAL MINUTES] spent with patient and on the chart (including review of chart, obtaining history, exam, reviewing outside data, placing orders, documenting exam and treatment plan, and counseling patient) on [DATE]. Quality VTE Deep Vein Thrombosis/Pulmonary Embolism Present on Admission: No
[2025-02-02] MEDS: METOCLOPRAMIDE 10 MG/2 ML INJ IV (14:11)
[2025-02-02] MEDS: PROMETHAZINE 12.5 MG SUPP PR (16:15)
[2025-02-02 18:22] VITALS: BP 122/75; PULSE 85; RESP 16; TEMP 36.4; O2SAT 100
[2025-02-02 20:00] VITALS: BP 119/77; PULSE 81; RESP 16; TEMP 35.7; O2SAT 100
[2025-02-02] MEDS: SODIUM CHLORIDE 0.9% FLUSH 10 ML IV (21:09)
[2025-02-03 05:36] LABS: Blood Urea Nitrogen 3 mg/dL (7-17); Calcium 9.0 mg/dL (8.4-10.2); Carbon Dioxide 21 mmol/L (22-32); Chloride 105 mmol/L (98-107); Estimated Glomerular Filt Rate > 60 mL/min (>60); Glucose 124 mg/dL (70-99); Sodium 138 mmol/L (137-145)
[2025-02-03 05:37] LABS: HEMOLYSIS 75 (0-50)
[2025-02-03 05:38] LABS: Potassium 3.6 mmol/L (3.4-5.1)
[2025-02-03] MEDS: METOCLOPRAMIDE 10 MG/2 ML INJ IV (09:28)
[2025-02-03] MEDS: DEXTROSE 5%-0.9% NS 1,000 ML 175 ML IV ×2 (09:34→15:26)
[2025-02-03] MEDS: CALCIUM CARBONATE 500 MG TAB PO (09:35)
[2025-02-03] MEDS: SODIUM CHLORIDE 0.9% FLUSH 10 ML IV (09:35)
[2025-02-03] MEDS: ONDANSETRON 4 MG/2 ML INJ IV (11:37)
--- NOTE | 2025-02-03 14:08 | PM.PN.1 ---
Subjective Subjective Interval history: S: Still nauseated, and not keeping liquids or food down. Her mother is at the bedside and expresses concern about her inability to eat and safety of discharge. O: Anxious and tearful, alert and oriented. Fluent speech. Lungs are clear, normal rate and effort. Heart is regular, no murmur gallop or rub. Abdomen is soft, non distended. Extremities are free of edema. A/P: 1. Vomiting of cannabinoid hyperemesis syndrome, present on admission, active. 2. Hypokalemia, present on admission. Active. 3. History of eating disorder apparent bulimia type 4. PTSD/depression/anxiety 5. History of prolonged QT interval, present on admission. Chronic. -QT interval of 418 on ED EKG. PLAN: -continue symptomatic treatment. -Add Valium -Monitor Potassium. She was not stable enough to be discharged given the inability to take oral fluids or food at this time. Exam Vital Signs (past 8 hours): - 02/03/25 07:00 Oxygen Delivery Method Room Air Oxygen Delivery Method Room Air Oxygen Flow Rate 0 Objective Labs 02/01/25 04:11 02/03/25 05:08 Labs: Laboratory Results - last 24 hr 02/03/25 05:08 Sodium 138 Potassium 3.6 Chloride 105 Carbon Dioxide 21 L BUN 3 L Creatinine 0.50 L Estimated GFR > 60 BUN/Creatinine Ratio 6.0 Glucose 124 H Calcium 9.0 PFSH Medical History Eating disorder in remission Vapes nicotine containing substance Prolonged QT interval Cannabis hyperemesis syndrome concurrent with and due to cannabis abuse Marijuana abuse Tear of lateral meniscus of right knee Tear of articular cartilage of right knee, current, initial encounter Anesthesia complication Anxiety and depression PTSD (post-traumatic stress disorder) COVID-19 virus infection ALL (acute lymphoid leukemia) in remission (2004) Nipple discharge in female (04/2021) Rectal bleeding (~05/2021) Nausea and vomiting History of leukemia Surgical History History of colonoscopy H/O arthroscopic knee surgery Hx of surgical procedure (04/01/06) Hx of surgical procedure (08/06/04) History of removal of Port-a-Cath (08/01/06) Social History household members: family Smoking Status: Current every day smoker second hand exposure: No alcohol intake: never substance use type: marijuana (vape, once a day) Assessment & Plan Time-Based Coding :: [TOTAL MINUTES] spent with patient and on the chart (including review of chart, obtaining history, exam, reviewing outside data, placing orders, documenting exam and treatment plan, and counseling patient) on [DATE]. Quality VTE Deep Vein Thrombosis/Pulmonary Embolism Present on Admission: No
[2025-02-03] MEDS: ONDANSETRON 4 MG ODT PO (17:25)
--- NOTE | 2025-02-03 18:30 | PM.DS.1 ---
History of Present Illness History of Present Illness Chief complaint: Can't eat or drink for 4 days, tingling both feet Narrative: From H&P: This is a 24-year-old female with a history of childhood ALL, prolonged QT interval, cannabis hyperemesis, anxiety, depression and PTSD who presents with 3 days of severe nausea and vomiting. Her last episode for cannabinoid hyperemesis syndrome was at [facility] on January 08. She was there for 5 days. She says that her hospitalizations generally last that long. She can not recall any particular medication that works better than any other. In the ED she was given Reglan, then Zofran and then droperidol without any visible change. Before coming in she had tried Haldol which she apparently received at her last hospitalization. Her potassium is 2.8 so she has received a 40 mEq IV infusion that will be followed up by a potassium level soon. The QT interval today is 418. 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 ? She says that her episodes tend to come on during periods of stress. She has a very flat affect and is not enthusiastic about answering questions or discussing what her stress is. An older female who appears to be her mother is present and assists with history taking. The patient does not have any recollection who prescribes her psychiatric medications but her mother suggests that it is the [facility] in [place]. Discharge Providers Provider Date of admission: 01/31/25 15:55 Discharge Date: 02/03/25 Consults: None. Discharge provider: Hugo Bello MD Summary Hospital Course Discharge Diagnosis: A/P: 1. Vomiting of cannabinoid hyperemesis syndrome, present on admission, resolved. 2. Hypokalemia, present on admission. Active. 3. History of eating disorder apparent bulimia type 4. PTSD/depression/anxiety 5. History of prolonged QT interval, present on admission. Chronic. -QT interval of 418 on ED EKG. Hospital Course: 02/01: She complains of constant nausea but looks more relaxed. She is apparently not receive the olanzapine yet so that will be tried today. She continues to request ?an antipsychotic for nausea ?. 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 The potassium went up to 3.7 last night and then came back down to 3.1 today so she will be supplemented again. 02/02: She was still nauseated but does want some Tums and ice water. She lives in [place], and notes that her episodic nausea and vomiting typically follows stress. She recently had stress at work. 02/03: She improved throughout the day and was able to advance her diet. She requested discharge at about 6:30 p.m. and left the hospital with her mother. Status at Discharge Cognitive/behavioral status at discharge: oriented Functional status at discharge: independent ambulation Overall status at discharge: patient is back to baseline Time Spent with Patient Time spent: Less than 30 minutes Exam Vital Signs (past 8 hours): Oxygen Delivery Method Room Air Oxygen Flow Rate 0 Narrative Exam Narrative: NAD, alert and oriented. Fluent speech. Lungs are clear, normal rate and effort. Heart is regular, no murmur gallop or rub. Abdomen is soft, non distended. Extremities are free of edema. Objective Labs 02/01/25 04:11 02/03/25 05:08 [facility] Medical History Eating disorder in remission Vapes nicotine containing substance Prolonged QT interval Cannabis hyperemesis syndrome concurrent with and due to cannabis abuse Marijuana abuse Tear of lateral meniscus of right knee Tear of articular cartilage of right knee, current, initial encounter Anesthesia complication Anxiety and depression PTSD (post-traumatic stress disorder) COVID-19 virus infection ALL (acute lymphoid leukemia) in remission (2004) Nipple discharge in female (04/2021) Rectal bleeding (~05/2021) Nausea and vomiting History of leukemia Surgical History History of colonoscopy H/O arthroscopic knee surgery Hx of surgical procedure (04/01/06) Hx of surgical procedure (08/06/04) History of removal of Port-a-Cath (08/01/06) Social History household members: family Smoking Status: Current every day smoker second hand exposure: No alcohol intake: never substance use type: marijuana (vape, once a day) Discharge Assessment & Plan Assessment and Plan Assessment: 1. Vomiting of cannabinoid hyperemesis syndrome, present on admission, resolved. 2. Hypokalemia, present on admission. Active. 3. History of eating disorder apparent bulimia type 4. PTSD/depression/anxiety 5. History of prolonged QT interval, present on admission. Chronic. -QT interval of 418 on ED EKG. Plan of Treatment: Discharge home, close follow up with PCP. She requested no new medications. Discharge Plan Discharge Plan Patient Disposition: Home Provider Discharge Comment: Patient's status has improved, she requests discharge. Her mother is with her. They request no discharge medications. Discharge orders & Medications Prescriptions: Continued buspirone 5 mg tablet 5 mg PO BID Qty: 180 0RF Rx Instructions: APPOINTMENT NEEDED FOR FURTHER REFILLS. 06/19/22 duloxetine 30 mg capsule,delayed release(DR/EC) 30 mg PO BID haloperidol 1 mg tablet 1 mg PO DAILY PRN (Reason: nausea and vomiting) Diet/Activity/Treatments Diet: Diet as Tolerated Visit Report/Discharge Packet Instructions: DI for Cyclic Vomiting Syndrome-Adult Stand Alone Forms: Patient Portal/API Discharge Data Attending Provider: Bryn Toth Admit Date/Time: 01/31/25 15:55 Quality VTE Deep Vein Thrombosis/Pulmonary Embolism Present on Admission: No
== END 2025-02-03 18:45 | disposition home or self-care (01) ==
LOC: ED 15:49 → AC 15:55
PROVIDERS: Emergency Medicine; Admitting Provider Family Medicine; Emergency Provider Student in an Organized Health Care Education/Training Program; Referring Provider Student in an Organized Health Care Education/Training Program; Visit Provider Family Medicine
DX: R11.2 Nausea with vomiting, unspecified (principal); F12.90 Cannabis use, unspecified, uncomplicated; E87.6 Hypokalemia; F43.10 Post-traumatic stress disorder, unspecified; F41.9 Anxiety disorder, unspecified; F32.A Depression, unspecified; F17.210 Nicotine dependence, cigarettes, uncomplicated; Z85.6 Personal history of leukemia
CPT/HCPCS: 36415; 74177; 80048; 80053; 81003; 81025; 83690; 83735; 84132; 84703; 85025; 93005; 93010; 96361; 96365; 96366; 96375; 96376; 99284; G0378; J1630; J1790; J2060; J2405; J2470; J2765; Q9967

== ENCOUNTER 2025-04-29 14:32 | Inpatient (IN) | payer SELFPAY ==
[2025-01-31 16:58] VITALS: BMI 29.2
[2025-04-29] VITALS (14 sets, daily range): BP systolic 107–140; BP diastolic 55–92; PULSE 62–116; RESP 12–18; TEMP 36.7; O2SAT 97–100; BMI 30.2; BMI 29.4
--- NOTE | 2025-04-29 14:50 | ED_ITS ---
HPI - Nausea/Vomiting/Diarrhea <Lorie Dalton PA-C - Last Filed: 04/29/25 19:14> General Chief complaint: Nausea/Vomiting/Diarrhea Stated complaint: N/V x 4 days/dehydration Time Seen by Provider: 04/29/25 14:50 History of Present Illness HPI Narrative: Katherine Norris is a very pleasant 25-year-old female with a past medical history of cyclic vomiting syndrome, regular marijuana use, who presents to the emergency department for persistent nausea and vomiting x4 days. Patient states in the past when this has happened she has had improvement with her symptoms with Ativan and droperidol or Haldol. She did try to take oral Haldol at home 2 days ago however did not help. She has not been able to keep down anything for the last 2 days and she is continuing to have clear emesis. She is having pain and burning in her epigastric abdominal region and substernal region due to the frequency of vomiting but no blood. She is having decreased urination and decreased bowel movements. This feels very similar to her prior sick with vomiting episodes. She denies fevers, flu-like symptoms, coughing, shortness of breath. Denies recent alcohol use or other drug use. Related Data Home Medications ?Medication ?Instructions ?Recorded ?Confirmed haloperidol 1 mg tablet 1 mg PO DAILY PRN nausea and 01/31/25 04/29/25 vomiting Allergies Allergy/AdvReac Type Severity Reaction Status Date / Time vancomycin Allergy Severe Red man Verified 01/31/25 10:04 syndrome Review of Systems <Lorie Dalton PA-C - Last Filed: 04/29/25 19:14> Review of Systems ROS Unobtainable: All systems reviewed & are unremarkable except as noted in HPI and below Patient History <Lorie Dalton PA-C - Last Filed: 04/29/25 19:14> Medical History Eating disorder in remission Vapes nicotine containing substance Prolonged QT interval Cannabis hyperemesis syndrome concurrent with and due to cannabis abuse Marijuana abuse Tear of lateral meniscus of right knee Tear of articular cartilage of right knee, current, initial encounter Anesthesia complication Anxiety and depression PTSD (post-traumatic stress disorder) COVID-19 virus infection ALL (acute lymphoid leukemia) in remission (2004) Nipple discharge in female (04/2021) Rectal bleeding (~05/2021) Nausea and vomiting History of leukemia Surgical History History of colonoscopy H/O arthroscopic knee surgery Hx of surgical procedure (04/01/06) Hx of surgical procedure (08/06/04) History of removal of Port-a-Cath (08/01/06) Social History household members: family Smoking Status: Current every day smoker second hand exposure: No alcohol intake: never substance use type: marijuana (vape, once a day) Smoking Status: Current every day smoker tobacco type: vaping alcohol intake frequency: a few times a month Exam <Lorie Dalton PA-C - Last Filed: 04/29/25 19:14> Narrative Exam Narrative: GENERAL: 25 year old patient appears stated age. Well-developed patient, in mild distress secondary to nausea and vomiting, clear emesis in bag. HEAD: Atraumatic. Normocephalic. EYES: No scleral icterus. No injection or drainage. NECK: Trachea midline. Cervical ROM intact. CARDIOVASCULAR: Regular rate and rhythm. RESPIRATORY: ?Nonlabored respirations. ?Speaking in clear, full sentences. ?Clear to auscultation. Breath sounds equal bilaterally. No wheezes, rales, or rhonchi. ? GASTROINTESTINAL: Abdomen soft, non-tender, nondistended. Bowel sounds are present. EXTREMITIES: No LE edema. BACK: No CVA tenderness BL. NEURO: AOx3. ?Clear speech. ?Moves all 4 extremities appropriately. SKIN: No rash or erythema of visible areas Initial Vital Signs Initial Vital Signs: Vital Signs Pulse Rate 101 H 04/29/25 14:37 Respiratory Rate 04/29/25 14:37 Blood Pressure 126/71 04/29/25 14:37 Pulse Oximetry 100 04/29/25 14:37 Oxygen Delivery Method Room Air 04/29/25 14:37 <Jaleel Rojas MD - Last Filed: 04/29/25 23:05> Initial Vital Signs Initial Vital Signs: Vital Signs Pulse Rate 101 H 04/29/25 14:37 Respiratory Rate 12 04/29/25 14:37 Blood Pressure 126/71 04/29/25 14:37 Pulse Oximetry 100 04/29/25 14:37 Oxygen Delivery Method Room Air 04/29/25 14:37 Course <Lorie Dalton PA-C - Last Filed: 04/29/25 19:14> Orders Ordered: ED Orders 04/29/25 14:42 EKG-12 Lead Stat 04/29/25 15:54 Complete Blood Count AUTO DIFF Stat Comprehensive Metabolic Panel Stat Lipase Stat Magnesium Stat 04/29/25 19:15 Urine Microscopic Stat 04/30/25 06:00 Basic Metabolic Panel DAILY Complete Blood Count AUTO DIFF DAILY Acetaminophen (Acetaminophen 325 Mg Tablet) 650 mg PO Q6H PRN PRN Reason: Fever/Mild Pain (1-3) Haloperidol (Haloperidol 5 Mg/Ml Vial) 2 mg IV Q4HR FADI Sodium Chloride (Normal Saline 0.9%) 1,000 mls @ 100 mls/hr IV CONT FADI Last Admin: 04/29/25 20:31 Dose: 100 mls/hr Documented By: SB Lorazepam (Lorazepam 2 Mg/Ml Inj) 0.25 mg IV Q4HR PRN PRN Reason: Anxiety Last Admin: 04/29/25 18:09 Dose: 0.25 mg Documented By: SONIA Metoclopramide HCl (Metoclopramide 10 Mg/2 Ml Inj) 10 mg IV Q4H PRN PRN Reason: nausea Last Admin: 04/29/25 22:27 Dose: 10 mg Documented By: SAVAGE Naloxone HCl (Naloxone 0.4 Mg/Ml Vial) 0.2 mg IV Q2MIN PRN PRN Reason: Opiate Reversal Ondansetron HCl (Ondansetron 4 Mg/2 Ml Inj) 4 mg IV NOW PRN PRN Reason: Nausea And Vomiting Last Admin: 04/29/25 15:45 Dose: 4 mg Documented By: MJ Ondansetron HCl (Ondansetron 4 Mg Odt) 4 mg PO NOW PRN PRN Reason: Nausea And Vomiting Ondansetron HCl (Ondansetron 4 Mg/2 Ml Inj) 4 mg IV Q8HR PRN PRN Reason: Nausea And Vomiting Discontinued Medications Diphenhydramine HCl (Diphenhydramine 50 Mg/Ml Vial) 50 mg IV NOW ONE Stop: 04/29/25 16:31 Last Admin: 04/29/25 17:24 Dose: 50 mg Documented By: MJ Droperidol (Droperidol 2.5 Mg/Ml Vial) 1.25 mg IV NOW ONE Stop: 04/29/25 16:31 Last Admin: 04/29/25 17:23 Dose: 1.25 mg Documented By: MJ Sodium Chloride (Normal Saline 0.9%) 1,000 mls @ 1,000 mls/hr IV BOLUS ONE Stop: 04/29/25 15:46 Last Infusion: 04/29/25 16:49 Dose: Infused Documented By: Admin: 04/29/25 15:46 Dose: 1,000 mls/hr Documented By: MJ POTASSIUM CHLORIDE IN WATER (Potassium Cl 10 Meq/100 Ml Edel) 10 meq in 100 mls @ 100 mls/hr IV Q1H FADI Stop: 04/29/25 18:44 Last Infusion: 04/29/25 20:01 Dose: Infused Documented By: Admin: 04/29/25 18:41 Dose: 100 mls/hr Documented By: Infusion: 04/29/25 18:40 Dose: Infused Documented By: [facility] Admin: 04/29/25 17:24 Dose: 100 mls/hr Documented By: IABryn Sodium Chloride (Normal Saline 0.9%) 1,000 mls @ 1,000 mls/hr IV BOLUS ONE Stop: 04/29/25 20:01 Last Infusion: 04/29/25 20:26 Dose: Infused Documented By: Admin: 04/29/25 19:11 Dose: 1,000 mls/hr Documented By: JARED Vital Signs Vital signs: Vital Signs - 8 hr 04/29/25 17:13 04/29/25 17:13 04/29/25 17:30 Pulse Rate 80 116 H Respiratory Rate Blood Pressure 130/75 Pulse Oximetry 99 99 Oxygen Delivery Method 04/29/25 17:37 04/29/25 17:37 04/29/25 18:00 Pulse Rate 90 Respiratory Rate Blood Pressure 120/65 107/60 Pulse Oximetry 98 Oxygen Delivery Method 04/29/25 18:00 04/29/25 18:30 04/29/25 18:30 Pulse Rate 76 71 Respiratory Rate Blood Pressure 107/55 L Pulse Oximetry 100 97 Oxygen Delivery Method 04/29/25 19:08 04/29/25 19:16 04/29/25 19:16 Pulse Rate 95 H 82 Respiratory Rate Blood Pressure 133/60 Pulse Oximetry 100 Oxygen Delivery Method 04/29/25 19:30 04/29/25 19:30 04/29/25 20:00 Pulse Rate 79 77 Respiratory Rate 18 Blood Pressure 134/70 Pulse Oximetry 100 100 Oxygen Delivery Method Room Air 04/29/25 20:00 Pulse Rate Respiratory Rate Blood Pressure 130/74 Pulse Oximetry Oxygen Delivery Method <Jaleel Rojas MD - Last Filed: 04/29/25 23:05> Orders Ordered: ED Orders 04/29/25 14:42 EKG-12 Lead Stat 04/29/25 15:54 Complete Blood Count AUTO DIFF Stat Comprehensive Metabolic Panel Stat Lipase Stat Magnesium Stat 04/29/25 19:15 Urine Microscopic Stat 04/30/25 06:00 Basic Metabolic Panel DAILY Complete Blood Count AUTO DIFF DAILY Acetaminophen (Acetaminophen 325 Mg Tablet) 650 mg PO Q6H PRN PRN Reason: Fever/Mild Pain (1-3) Haloperidol (Haloperidol 5 Mg/Ml Vial) 2 mg IV Q4HR FADI Sodium Chloride (Normal Saline 0.9%) 1,000 mls @ 100 mls/hr IV CONT FADI Last Admin: 04/29/25 20:31 Dose: 100 mls/hr Documented By: SB Lorazepam (Lorazepam 2 Mg/Ml Inj) 0.25 mg IV Q4HR PRN PRN Reason: Anxiety Last Admin: 04/29/25 18:09 Dose: 0.25 mg Documented By: AI Metoclopramide HCl (Metoclopramide 10 Mg/2 Ml Inj) 10 mg IV Q4H PRN PRN Reason: nausea Last Admin: 04/29/25 22:27 Dose: 10 mg Documented By: SH Naloxone HCl (Naloxone 0.4 Mg/Ml Vial) 0.2 mg IV Q2MIN PRN PRN Reason: Opiate Reversal Ondansetron HCl (Ondansetron 4 Mg/2 Ml Inj) 4 mg IV NOW PRN PRN Reason: Nausea And Vomiting Last Admin: 04/29/25 15:45 Dose: 4 mg Documented By: FLBryn Ondansetron HCl (Ondansetron 4 Mg Odt) 4 mg PO NOW PRN PRN Reason: Nausea And Vomiting Ondansetron HCl (Ondansetron 4 Mg/2 Ml Inj) 4 mg IV Q8HR PRN PRN Reason: Nausea And Vomiting Discontinued Medications Diphenhydramine HCl (Diphenhydramine 50 Mg/Ml Vial) 50 mg IV NOW ONE Stop: 04/29/25 16:31 Last Admin: 04/29/25 17:24 Dose: 50 mg Documented By: MJ Droperidol (Droperidol 2.5 Mg/Ml Vial) 1.25 mg IV NOW ONE Stop: 04/29/25 16:31 Last Admin: 04/29/25 17:23 Dose: 1.25 mg Documented By: MJ Sodium Chloride (Normal Saline 0.9%) 1,000 mls @ 1,000 mls/hr IV BOLUS ONE Stop: 04/29/25 15:46 Last Infusion: 04/29/25 16:49 Dose: Infused Documented By: Admin: 04/29/25 15:46 Dose: 1,000 mls/hr Documented By: MJ POTASSIUM CHLORIDE IN WATER (Potassium Cl 10 Meq/100 Ml Edel) 10 meq in 100 mls @ 100 mls/hr IV Q1H FADI Stop: 04/29/25 18:44 Last Infusion: 04/29/25 20:01 Dose: Infused Documented By: Admin: 04/29/25 18:41 Dose: 100 mls/hr Documented By: Infusion: 04/29/25 18:40 Dose: Infused Documented By: Admin: 04/29/25 17:24 Dose: 100 mls/hr Documented By: MJ Sodium Chloride (Normal Saline 0.9%) 1,000 mls @ 1,000 mls/hr IV BOLUS ONE Stop: 04/29/25 20:01 Last Infusion: 04/29/25 20:26 Dose: Infused Documented By: Admin: 04/29/25 19:11 Dose: 1,000 mls/hr Documented By: JARED Vital Signs Vital signs: Vital Signs - 8 hr 04/29/25 17:13 04/29/25 17:13 04/29/25 17:30 Pulse Rate 80 116 H Respiratory Rate Blood Pressure 130/75 Pulse Oximetry 99 99 Oxygen Delivery Method 04/29/25 17:37 04/29/25 17:37 04/29/25 18:00 Pulse Rate 90 Respiratory Rate Blood Pressure 120/65 107/60 Pulse Oximetry 98 Oxygen Delivery Method 04/29/25 18:00 04/29/25 18:30 04/29/25 18:30 Pulse Rate 76 71 Respiratory Rate Blood Pressure 107/55 L Pulse Oximetry 100 97 Oxygen Delivery Method 04/29/25 19:08 04/29/25 19:16 04/29/25 19:16 Pulse Rate 95 H 82 Respiratory Rate Blood Pressure 133/60 Pulse Oximetry 100 Oxygen Delivery Method 04/29/25 19:30 04/29/25 19:30 04/29/25 20:00 Pulse Rate 79 77 Respiratory Rate 18 Blood Pressure 134/70 Pulse Oximetry 100 100 Oxygen Delivery Method Room Air 04/29/25 20:00 Pulse Rate Respiratory Rate Blood Pressure 130/74 Pulse Oximetry Oxygen Delivery Method MDM - Nausea/Vomiting/Diarrhea <Lorie Dalton PA-C - Last Filed: 04/29/25 19:14> Medical Records Attestation: I reviewed the patient's medical records. Lab Data 04/29/25 15:54 04/29/25 15:54 Labs: Lab Results 04/29/25 04/29/25 Range/Units 15:54 19:15 WBC 14.0 H (4.5-11.0) X10^3/uL RBC 5.51 H (4.0-5.2) X10^6/uL Hgb 13.5 (12.0-16.0) g/dL Hct 40.4 (36-46) % MCV 73.4 L (80-100) fL MCH 24.6 L (26-34) PG MCHC 33.5 (30-36) % RDW 16.5 H (11.6-14.8) % Plt Count 353 (150-400) X10^3/uL Neut % (Auto) 71.4 (50-75) % Lymph % (Auto) 19.8 L (25-40) % [place] % (Auto) 8.2 (3-14) % Eos % (Auto) 0.0 L (2-4) % Baso % (Auto) 0.6 (0-2) % Neut # (Auto) 98727 H (8671-1859) /uL Lymph # (Auto) 2800 (5459-3475) /uL [place] # (Auto) 1100 H (0-900) /uL Eos # (Auto) 0 (0-450) /uL Baso # (Auto) 100 (0-100) /uL Sodium 140 (137-145) mmol/L Potassium 3.2 L (3.4-5.1) mmol/L Chloride 95 L (98-107) mmol/L Carbon Dioxide 29 (22-32) mmol/L BUN 14 (7-17) mg/dL Creatinine 0.75 (0.52-1.04) mg/dL Estimated GFR > 60 (>60) mL/min BUN/Creatinine Ratio 18.7 (6-22) Glucose 105 H (70-99) mg/dL Calcium 10.3 H (8.4-10.2) mg/dL Magnesium 2.5 H (1.6-2.3) mg/dL Total Bilirubin 0.9 (0.2-1.3) mg/dL AST 30 (14-36) IU/L ALT 26 (<35) IU/L Alkaline Phosphatase 76 (38-126) U/L Total Protein 9.3 H (6.3-8.2) g/dL Albumin 5.5 H (3.5-5.0) g/dL Globulin 3.8 (1.7-4.1) g/dL Albumin/Globulin Ratio 1.4 (1.0-2.8) Lipase 47 (23-300) U/L Urine RBC None seen (0-5/HPF) Urine WBC None seen (0-5/HPF) Ur Squamous Epith Cells 0-1 /hpf (0-5/HPF) Urine Bacteria Occasional (0-1) (None) Ur Culture Indicated? Cult not indicated Vol Urine Centrifuged 10ml (spun) Point of Care Testing Test Results Negative Urine Dip Bedside Urine Glucose Negative Bedside Urine Bilirubin - Negative Bedside Urine Ketone +++ 80 Urine Specific [place] 1.010 Bedside Urine Occult Blood - Negative Bedside Urine pH 7.5 Bedside Urine Protein +/- 15 Bedside Urine Urobilinogen - Negative Bedside Urine Nitrite - Negative Bedside Urine Leukocytes - Negative Esterase MDM Narrative Medical decision making narrative: 25-year-old female with a past medical history of cyclic vomiting syndrome, regular marijuana use, who presents to the emergency department for persistent nausea and vomiting x4 days. Differential diagnosis includes but is not limited to cannabinoid hyperemesis syndrome, electrolyte derangement, dehydration, UTI, , colitis, cholecystitis, appendicitis, pancreatitis, etc. On exam the patient is visibly uncomfortable, nauseous, clear emesis in bag. Her heart rate is elevated 101. She has mild epigastric discomfort however she has no tenderness, no rebound, no guarding. Her symptoms feel very similar to prior cyclic vomiting episodes. No fevers. EKG obtained revealing normal sinus rhythm with a rate of 68 beats per minute, QTC of 444. Baseline labs obtained including magnesium. She was treated with IV fluids and Zofran prior to the EKG. She is still experiencing symptoms, we will add on 1.25 droperidol, 50 Benadryl, 0.25 Ativan as this has worked well for her in the past. Labs reveal elevated WBC count 14.0, elevated RBC 5.51, platelets normal 353. Sodium normal 140, potassium low 3.2. BUN 14 creatinine 0.75. Glucose 105. Normal lipase 47, normal LFTs. 20 mEq K rider ordered. About 15 minutes after the patient received droperidol and Benadryl she was feeling much better, repeat abdominal exam is benign with no rebound, no guarding, no tenderness. 1900: Patient's symptoms returned, she is now feeling nauseous, nonbloody vomiting present. She ambulated to the bathroom to provide urine sample blood we will unfortunately need additional medications. Second L of IV fluids ordered. Due to shift change, case discussed with nighttime ED attending physician Dr. Nieves for continuation of care. <Jaleel Rojas MD - Last Filed: 04/29/25 23:05> Lab Data Attestation: I reviewed the patient's lab results. Labs: Lab Results 04/29/25 04/29/25 Range/Units 15:54 19:15 WBC 14.0 H (4.5-11.0) X10^3/uL RBC 5.51 H (4.0-5.2) X10^6/uL Hgb 13.5 (12.0-16.0) g/dL Hct 40.4 (36-46) % MCV 73.4 L (80-100) fL MCH 24.6 L (26-34) PG MCHC 33.5 (30-36) % RDW 16.5 H (11.6-14.8) % Plt Count 353 (150-400) X10^3/uL Neut % (Auto) 71.4 (50-75) % Lymph % (Auto) 19.8 L (25-40) % [place] % (Auto) 8.2 (3-14) % Eos % (Auto) 0.0 L (2-4) % Baso % (Auto) 0.6 (0-2) % Neut # (Auto) 34719 H (5938-9606) /uL Lymph # (Auto) 2800 (8647-6250) /uL [place] # (Auto) 1100 H (0-900) /uL Eos # (Auto) 0 (0-450) /uL Baso # (Auto) 100 (0-100) /uL Sodium 140 (137-145) mmol/L Potassium 3.2 L (3.4-5.1) mmol/L Chloride 95 L (98-107) mmol/L Carbon Dioxide 29 (22-32) mmol/L BUN 14 (7-17) mg/dL Creatinine 0.75 (0.52-1.04) mg/dL Estimated GFR > 60 (>60) mL/min BUN/Creatinine Ratio 18.7 (6-22) Glucose 105 H (70-99) mg/dL Calcium 10.3 H (8.4-10.2) mg/dL Magnesium 2.5 H (1.6-2.3) mg/dL Total Bilirubin 0.9 (0.2-1.3) mg/dL AST 30 (14-36) IU/L ALT 26 (<35) IU/L Alkaline Phosphatase 76 (38-126) U/L Total Protein 9.3 H (6.3-8.2) g/dL Albumin 5.5 H (3.5-5.0) g/dL Globulin 3.8 (1.7-4.1) g/dL Albumin/Globulin Ratio 1.4 (1.0-2.8) Lipase 47 (23-300) U/L Urine RBC None seen (0-5/HPF) Urine WBC None seen (0-5/HPF) Ur Squamous Epith Cells 0-1 /hpf (0-5/HPF) Urine Bacteria Occasional (0-1) (None) Ur Culture Indicated? Cult not indicated Vol Urine Centrifuged 10ml (spun) Point of Care Testing Test Results Negative Urine Dip Bedside Urine Glucose Negative Bedside Urine Bilirubin - Negative Bedside Urine Ketone +++ 80 Urine Specific [place] 1.010 Bedside Urine Occult Blood - Negative Bedside Urine pH 7.5 Bedside Urine Protein +/- 15 Bedside Urine Urobilinogen - Negative Bedside Urine Nitrite - Negative Bedside Urine Leukocytes - Negative Esterase ECG Data Attestation: I personally reviewed and interpreted this ECG as follows: (Sinus rhythm with a rate of 68. Normal axis and intervals. No ischemic changes) MDM Narrative Medical decision making narrative: 25-year-old female with a past medical history of cyclic vomiting syndrome, regular marijuana use, who presents to the emergency department for persistent nausea and vomiting x4 days. Differential diagnosis includes but is not limited to cannabinoid hyperemesis syndrome, electrolyte derangement, dehydration, UTI, , colitis, cholecystitis, appendicitis, pancreatitis, etc. On exam the patient is visibly uncomfortable, nauseous, clear emesis in bag. Her heart rate is elevated 101. She has mild epigastric discomfort however she has no tenderness, no rebound, no guarding. Her symptoms feel very similar to prior cyclic vomiting episodes. No fevers. EKG obtained revealing normal sinus rhythm with a rate of 68 beats per minute, QTC of 444. Baseline labs obtained including magnesium. She was treated with IV fluids and Zofran prior to the EKG. She is still experiencing symptoms, we will add on 1.25 droperidol, 50 Benadryl, 0.25 Ativan as this has worked well for her in the past. Labs reveal elevated WBC count 14.0, elevated RBC 5.51, platelets normal 353. Sodium normal 140, potassium low 3.2. BUN 14 creatinine 0.75. Glucose 105. Normal lipase 47, normal LFTs. 20 mEq K rider ordered. About 15 minutes after the patient received droperidol and Benadryl she was feeling much better, repeat abdominal exam is benign with no rebound, no guarding, no tenderness. 1900: Patient's symptoms returned, she is now feeling nauseous, nonbloody vomiting present. She ambulated to the bathroom to provide urine sample blood we will unfortunately need additional medications. Second L of IV fluids ordered. Due to shift change, case discussed with nighttime ED attending physician Dr. Nieves for continuation of care. 19:00 Patient care transferred to ia the change of shift by CLAUS Hodges with disposition pending. Patient is still having nausea and vomiting after fluids, potassium and multiple medications. I examined the patient and she is feeling a little better compared to its signed out but still very nauseated and has vomited. Her heart rate is down to 75 now. I discussed patient's care with Dr. Gomez who agrees to admit her on observation for intractable vomiting from probable cyclic vomiting syndrome or hyperemesis cannabis. Discharge Plan Departure Patient Disposition: Admitted as Observation Clinical Impression: Cyclical vomiting, Hypokalemia Admit Date/Time: 04/29/25 20:12 Admit Provider: Rod Gomez
[2025-04-29] MEDS: ONDANSETRON 4 MG/2 ML INJ IV (15:45)
[2025-04-29] MEDS: SODIUM CHLORIDE 0.9% 1,000 ML 1000 ML IV ×2 (15:46→19:11)
--- NOTE | 2025-04-29 16:05 | EKG_ITS ---
[facility] [address], [place] [address] Test Date: 2025-04-29 Pat Name: Katherine Norris Department: [facility] Room: Gender: Female [employer]: javier : 2000 Requested By: Order Number: [id number] Reading MD: Parish Brownlee MD Measurements Intervals [place] Rate: 68 P: 43 FL: 120 QRS: 77 QRSD: 94 T: 55 QT: 418 QTc: 444 Interpretive Statements Normal sinus rhythm Electronically Signed On 04-30-2025 10:17:37 PST by Parish Brownlee MD
[2025-04-29 16:13] LABS: Add Manual Diff / Slide Review NO; Hematocrit 40.4 % (36-46); Hemoglobin 13.5 g/dL (12.0-16.0); Lymphocytes Absolute Auto 2800 /uL (1100-4500); Mean Corpuscular HGB Conc 33.5 % (30-36); Mean Corpuscular Hemoglobin 24.6 PG (26-34); Mean Corpuscular Volume 73.4 fL (80-100); Platelet Count 353 X10^3/uL (150-400)
[2025-04-29 16:14] LABS: Alanine Aminotransferase 26 IU/L (<35); Albumin 5.5 g/dL (3.5-5.0); Albumin Globulin Ratio 1.4 (1.0-2.8); Alkaline Phosphatase 76 U/L (38-126); Blood Urea Nitrogen 14 mg/dL (7-17); Calcium 10.3 mg/dL (8.4-10.2); Carbon Dioxide 29 mmol/L (22-32); Chloride 95 mmol/L (98-107); Estimated Glomerular Filt Rate > 60 mL/min (>60); Globulin 3.8 g/dL (1.7-4.1); Glucose 105 mg/dL (70-99); HEMOLYSIS < 15 (0-50); Lipase 47 U/L (23-300); Potassium 3.2 mmol/L (3.4-5.1); Sodium 140 mmol/L (137-145); Total Protein 9.3 g/dL (6.3-8.2)
[2025-04-29 16:32] LABS: Magnesium 2.5 mg/dL (1.6-2.3)
[2025-04-29] MEDS: droPERidol 2.5 MG/ML VIAL 1.25 MG IV (17:23)
[2025-04-29] MEDS: diphenhydrAMINE 50 MG/ML VIAL IV (17:24)
[2025-04-29] MEDS: POTASSIUM CHLORIDE IN WATER 10 MEQ/100 ML PIGGYBACK 100 MEQ IV ×2 (17:24→18:41)
[2025-04-29 19:47] LABS: Culture Indicated Urine Cult Not Indicated
[2025-04-29] MEDS: SODIUM CHLORIDE 0.9% 1,000 ML 100 ML IV (20:31)
--- NOTE | 2025-04-29 21:00 | EKG_ITS ---
[place] [id number], [place] [address] Test Date: 2025-04-29 Pat Name: Katherine Norris Department: Room: 209 Gender: Female Event Staff: : 2000 Requested By: Order Number: [id number] Reading MD: Parish Brownlee MD Measurements Intervals [place] Rate: 64 P: 31 DE: 120 QRS: 143 QRSD: 94 T: 129 QT: 456 QTc: 470 Interpretive Statements Normal sinus rhythm with sinus arrhythmia Lateral infarct , age undetermined Electronically Signed On 04-30-2025 10:18:08 PST by Parish Brownlee MD
[2025-04-29] MEDS: METOCLOPRAMIDE 10 MG/2 ML INJ IV (22:27)
[2025-04-30] MEDS: HALOPERIDOL 5 MG/ML VIAL 2 MG IV ×2 (01:09→11:59)
[2025-04-30 04:00] VITALS: BP 151/98; PULSE 69; RESP 17; TEMP 37.2; O2SAT 100
[2025-04-30 05:23] VITALS: BP 146/90; PULSE 73
[2025-04-30] MEDS: PROCHLORPERAZINE 10 MG/2 ML VIAL 5 MG IV (05:23)
--- NOTE | 2025-04-30 05:27 | PM.HP.1 ---
History of Present Illness History of Present Illness Date Patient Seen: 04/30/25 Time Patient Seen: 01:27 Chief complaint: N/V x 4 days/dehydration Narrative: 25-year-old female with past medical history of cyclic vomiting and marijuana use presents with severe nausea, vomiting. Per the patient's report, over the last 4 days the patient has increasing nausea and vomiting. The patient states that her last use of marijuana was 4 days ago. The patient states that she was unable to keep anything down today due to the severe nausea and vomiting. The patient also has some mild burning epigastric pain but denies any GI bleeding, fever, chills, dysuria, chest pain or shortness of breath. In the emergency room, the patient was hemodynamically stable. Labs shows WBC of 14 potassium 3.2 and the rest of the labs were relatively benign. Lipase was normal. The patient was given IV fluid and potassium replacement. IV antiemetics was also given. Due to ongoing symptoms our ER physician requested admission to observation for IV fluid and controlling patient's severe nausea and vomiting. [facility] Medical History Eating disorder in remission Vapes nicotine containing substance Prolonged QT interval Cannabis hyperemesis syndrome concurrent with and due to cannabis abuse Marijuana abuse Tear of lateral meniscus of right knee Tear of articular cartilage of right knee, current, initial encounter Anesthesia complication Anxiety and depression PTSD (post-traumatic stress disorder) COVID-19 virus infection ALL (acute lymphoid leukemia) in remission (2004) Nipple discharge in female (04/2021) Rectal bleeding (~05/2021) Nausea and vomiting History of leukemia Surgical History History of colonoscopy H/O arthroscopic knee surgery Hx of surgical procedure (04/01/06) Hx of surgical procedure (08/06/04) History of removal of Port-a-Cath (08/01/06) Social History household members: family Smoking Status: Current every day smoker second hand exposure: No alcohol intake: never substance use type: marijuana (vape, once a day) Meds Home Medications and Allergies Home Medications ?Medication ?Instructions ?Recorded ?Confirmed ?Type haloperidol 1 mg tablet 1 mg PO DAILY PRN nausea and 01/31/25 04/29/25 History vomiting Allergies Allergy/AdvReac Type Severity Reaction Status Date / Time vancomycin Allergy Severe Red man Verified 01/31/25 10:04 syndrome Review of Systems Review of Systems ROS: Yes All systems reviewed with the patient and are negative except as otherwise documented Exam Vital Signs (past 8 hours): - 04/29/25 21:37 04/30/25 04:00 04/30/25 05:23 Temperature 98.0 F 98.9 F Pulse Rate 76 69 73 Respiratory Rate 18 17 Blood Pressure 140/92 H 151/98 H 146/90 H Pulse Oximetry 100 100 Oxygen Flow Rate 0 0 Oxygen Delivery Method Room Air Oxygen Flow Rate 0 Narrative Exam Narrative: Physical Exam: GENERAL: The patient is not in any acute distressed. Awake and alert. HEENT: Nonicteric sclerae, PERRLA, EOMI. Oropharynx clear. Moist mucous membranes. Conjunctivae appear well perfused. HEART: Regular rate and rhythm without murmurs. No lower extremities edema. LUNGS: Clear to auscultation bilaterally. No wheezing, crackles or rhonchi ABDOMEN: Soft, positive bowel sounds, nontender. SKIN: No rash, no excessive bruising, petechiae, or purpura. NEUROLOGIC: AxO x 3. Cranial nerves II-XII intact without motor/sensory deficit. Objective Labs 04/29/25 15:54 04/29/25 15:54 Labs: Laboratory Results - last 24 hr 04/29/25 04/29/25 15:54 19:15 WBC 14.0 H RBC 5.51 H Hgb 13.5 Hct 40.4 MCV 73.4 L MCH 24.6 L MCHC 33.5 RDW 16.5 H Plt Count 353 Neut % (Auto) 71.4 Lymph % (Auto) 19.8 L [place] % (Auto) 8.2 Eos % (Auto) 0.0 L Baso % (Auto) 0.6 Neut # (Auto) 61822 H Lymph # (Auto) 2800 [place] # (Auto) 1100 H Eos # (Auto) 0 Baso # (Auto) 100 Sodium 140 Potassium 3.2 L Chloride 95 L Carbon Dioxide 29 BUN 14 Creatinine 0.75 Estimated GFR > 60 BUN/Creatinine Ratio 18.7 Glucose 105 H Calcium 10.3 H Magnesium 2.5 H Total Bilirubin 0.9 AST 30 ALT 26 Alkaline Phosphatase 76 Total Protein 9.3 H Albumin 5.5 H Globulin 3.8 Albumin/Globulin Ratio 1.4 Lipase 47 Urine RBC None seen Urine WBC None seen Ur Squamous Epith Cells 0-1 /hpf Urine Bacteria Occasional (0-1) Ur Culture Indicated? Cult not indicated Vol Urine Centrifuged 10ml (spun) Assessment & Plan Assessment & Plan narrative: Cyclic nausea vomiting. admit the patient to medical observation. Continue IV fluid and IV antiemetics. Patient has been counseled regarding to stop marijuana use as this can contribute to her recurrent nausea and vomiting. Hypokalemia. Replace and monitor. Dehydration. IV fluid. Leukocytosis. Mild. Afebrile. Likely stressed induced. Monitor for now. Prolonged QT. Try to avoid medicaitons that would worsens QT. DVT PPx Early ambulation Code status full code Disposition home in 1-2 days - As the provider of this telehealth evaluation, requested by the patient's evaluating physician, I attest that I introduced myself to the patient, provided my credentials and determined that telemedicine via a real-time, 2 way interactive audio and video platform is an appropriate and effective means of providing this service. - I reviewed the patient's chart and had a discussion with the member of the patient's treatment team. - The patient and I mutually agreed with continuation of this evaluation via telemedicine. The patient consented for the telemedicine evaluation. - This virtual encounter was taken place from [place] by Dr. Rod Gomez. The patient was evaluated at [facility]. The encounter was approximately 35 minutes. The nurse was present during the entire time of the encounter and was able assists with the stethoscope to listen to the patients. Time-Based Coding :: [TOTAL MINUTES] spent with patient and on the chart (including review of chart, obtaining history, exam, reviewing outside data, placing orders, documenting exam and treatment plan, and counseling patient) on [DATE].
[2025-04-30] MEDS: SODIUM CHLORIDE 0.9% 1,000 ML 100 ML IV ×2 (05:50→19:10)
[2025-04-30 07:54] LABS: Add Manual Diff / Slide Review NO; Hematocrit 36.7 % (36-46); Hemoglobin 12.1 g/dL (12.0-16.0); Lymphocytes Absolute Auto 2200 /uL (1100-4500); Mean Corpuscular HGB Conc 32.9 % (30-36); Mean Corpuscular Hemoglobin 24.6 PG (26-34); Mean Corpuscular Volume 75.0 fL (80-100); Platelet Count 253 X10^3/uL (150-400)
[2025-04-30 08:02] VITALS: BP 140/91; PULSE 70; RESP 18; TEMP 36.6; O2SAT 98
[2025-04-30 08:06] LABS: Blood Urea Nitrogen 7 mg/dL (7-17); Calcium 8.5 mg/dL (8.4-10.2); Carbon Dioxide 21 mmol/L (22-32); Chloride 106 mmol/L (98-107); Estimated Glomerular Filt Rate > 60 mL/min (>60); Glucose 106 mg/dL (70-99); HEMOLYSIS 21 (0-50); Potassium 3.3 mmol/L (3.4-5.1); Sodium 139 mmol/L (137-145)
[2025-04-30] MEDS: POTASSIUM CHLORIDE IN WATER 10 MEQ/100 ML PIGGYBACK 100 MEQ IV ×2 (09:42→09:53)
[2025-04-30 11:33] VITALS: BP 122/86; PULSE 70; RESP 16; TEMP 36.6; O2SAT 93
[2025-04-30] MEDS: diphenhydrAMINE 50 MG/ML VIAL IV ×2 (11:59→19:06)
[2025-04-30] MEDS: POTASSIUM CHLORIDE IN WATER 10 MEQ/100 ML PIGGYBACK 50 MEQ IV ×4 (12:13→15:15)
--- NOTE | 2025-04-30 13:45 | CM.DANOTE ---
Patient is a 25 yo female who was admitted OBS Status on 04/29/25 for Dehydration/Hyperemesis. Pt has [employer] for insurance and her PCP is not listed. EMR was reviewed. Per MD, pt admitted with similar presentation of cyclical vomiting/hyperemesis from recent THC use and currently NPO and on bowel rest. Likely another 1-2 days. SW met briefly bedside with pt and explained role and pt clearly not feeling well but confirms [place] and is independent at baseline. Pt denies the need for [facility] resources at this time and preference is home when stable. Pt seems to have some denial regarding her THC use and medical condition. Plan: SW to follow closely for plan of home when stable and maybe attempt to discuss further when pt is feeling better regarding community supports or educational information on her current medical status/THC use. JOEY Grover Discharge Planning/Care Management CM Discharge Assessment Start: 04/29/25 21:41 Freq: Status: Active Protocol: Document 04/30/25 13:43 BF (Rec: 04/30/25 13:45 BF [id number]) Discharge Planning Assessment Assigned Discharge JOEY Link [employer]ating [employer] Insurance Comment [employer] DPOA/Assigned mother Designee Name Advance Directives? No Advance Directives No on File History Provided By Patient,Medical Record Has Patient been No admitted in last 30 days? Comment Here a few months ago for similar Prior Living House Arrangements Household Members family Type of Drives own vehicle transporation used prior to admit Independent with ADL Yes 's Is patient alert and Yes oriented? Caregiver for No Another Barriers to No Discharge Discharge Plan Home Referrals Initiated None needed Whiteboard Updated Yes in Patient Room with name and ext. # of Glass [employer] Review Status In Process Please Provide Date 04/30/25 Initial DC Assessment Was Performed Next Review Type Continued Stay Review
[2025-04-30] MEDS: METOCLOPRAMIDE 10 MG/2 ML INJ IV ×2 (16:24→20:15)
--- NOTE | 2025-04-30 16:31 | P.PN_ITS ---
Subjective Subjective Interval history: 25-year-old female with history of cyclic vomiting and cannabinoid hyperemesis syndrome with ongoing marijuana use who was admitted overnight with recurrent intractable nausea and vomiting. She reports she is presently 4 days into her present cycle of nausea and vomiting. She states typically nothing is particularly effective and she just has to wait it out. Her usual cycles last 7-8 days. She notes she last threw up about 30 minutes before my arrival in the room. She does report a history of prolonged QT syndrome. She does complain of a headache and is asking for Benadryl which is typically effective for her. She denies any other complaints. Exam Vital Signs (past 8 hours): - 04/30/25 11:33 Temperature 97.9 F Pulse Rate 70 Respiratory Rate 16 Blood Pressure 122/86 Pulse Oximetry 93 Oxygen Delivery Method Room Air Oxygen Flow Rate 0 Narrative Exam Narrative: GEN: Adult female, pleasant, alert and oriented x3 NAD HEENT:NC, Face symmetric CHEST: Respiratory excursions symmetric, CTAB CV: RRR, no M/R/G ABD: Soft, mild epigastric tenderness/ND, BT present in all 4 quadrants, no organomegaly or masses EXTR: warm, well perfused, no C/C/E SKIN: warm and dry, no rash NEURO: Alert and oriented x 3, nonfocal Objective Labs 04/30/25 06:55 04/30/25 06:55 Labs: Laboratory Results - last 24 hr 04/29/25 04/29/25 04/30/25 15:54 19:15 06:55 WBC 11.1 H RBC 4.90 Hgb 12.1 Hct 36.7 MCV 75.0 L MCH 24.6 L MCHC 32.9 RDW 16.8 H Plt Count 253 Neut % (Auto) 74.8 Lymph % (Auto) 19.5 L [place] % (Auto) 5.3 Eos % (Auto) 0.0 L Baso % (Auto) 0.4 Neut # (Auto) 8300 H Lymph # (Auto) 2200 [place] # (Auto) 600 Eos # (Auto) 0 Baso # (Auto) 0 Sodium 139 Potassium 3.3 L Chloride 106 Carbon Dioxide 21 L BUN 7 Creatinine 0.54 Estimated GFR > 60 BUN/Creatinine Ratio 13.0 Glucose 106 H Calcium 8.5 Magnesium 2.5 H Urine RBC None seen Urine WBC None seen Ur Squamous Epith Cells 0-1 /hpf Urine Bacteria Occasional (0-1) Ur Culture Indicated? Cult not indicated Vol Urine Centrifuged 10ml (spun) [facility] Medical History Eating disorder in remission Vapes nicotine containing substance Prolonged QT interval Cannabis hyperemesis syndrome concurrent with and due to cannabis abuse Marijuana abuse Tear of lateral meniscus of right knee Tear of articular cartilage of right knee, current, initial encounter Anesthesia complication Anxiety and depression PTSD (post-traumatic stress disorder) COVID-19 virus infection ALL (acute lymphoid leukemia) in remission (2004) Nipple discharge in female (04/2021) Rectal bleeding (~05/2021) Nausea and vomiting History of leukemia Surgical History History of colonoscopy H/O arthroscopic knee surgery Hx of surgical procedure (04/01/06) Hx of surgical procedure (08/06/04) History of removal of Port-a-Cath (08/01/06) Social History household members: family Smoking Status: Current every day smoker second hand exposure: No alcohol intake: never substance use type: marijuana (vape, once a day) Assessment & Plan Assessment & Plan narrative: 1. Cyclic vomiting syndrome/cannabinoid hyperemesis syndrome Will continue antiemetics and IV fluids. She does have a history of prolonged QT syndrome. I have ordered telemetry. Her QT is now 0.40. Will use haloperidol as needed as it is 1st line. I have asked nursing to check her QT prior to giving the haloperidol to ensure that it is not becoming increasingly prolonged. It will be held for a QT > 0.47. 2. Hypokalemia Potassium is 3.3, which is mildly improved compared with yesterday. Will continue to replete. 3. Prolonged QT As above will continue telemetry and monitor. 4. Leukocytosis White blood cell count down from 14 0.0-11.1. Suspect this is reactive in nature. 5. Hypercalcemia Likely secondary to dehydration. Improved today. Code status Full Prophylaxis Low Lesley score Disposition Will discharge home when she is able to tolerate oral intake and maintain hydration Time-Based Coding :: [TOTAL MINUTES] spent with patient and on the chart (including review of chart, obtaining history, exam, reviewing outside data, placing orders, documenting exam and treatment plan, and counseling patient) on [DATE].
[2025-04-30 16:51] VITALS: BP 106/68; PULSE 79; RESP 16; TEMP 36.6; O2SAT 100
--- NOTE | 2025-04-30 18:40 | CM.MNRNOTE ---
Pt up ad cara in room, Med for H/A and nausea x 1 w/relief. Pt feels best after shower; had 3 showers today, Received KCL riders as per orders. IVF infusing w/o incidence. Call light w/in reach, pt calls apprpriately for needs. Continue w/plan of care.
[2025-04-30 20:00] VITALS: BP 123/78; PULSE 75; RESP 16; TEMP 36.9; O2SAT 100
[2025-05-01] VITALS (7 sets, daily range): BP systolic 122–144; BP diastolic 77–93; PULSE 77–175; RESP 15–19; TEMP 35.5–36.7; O2SAT 98–100
[2025-05-01] MEDS: METOCLOPRAMIDE 10 MG/2 ML INJ IV (00:48)
[2025-05-01] MEDS: diphenhydrAMINE 50 MG/ML VIAL IV ×2 (03:35→13:28)
[2025-05-01] MEDS: SODIUM CHLORIDE 0.9% 1,000 ML 100 ML IV ×2 (05:03→14:34)
[2025-05-01 08:01] LABS: Add Manual Diff / Slide Review NO; Hematocrit 37.8 % (36-46); Hemoglobin 12.6 g/dL (12.0-16.0); Lymphocytes Absolute Auto 2600 /uL (1100-4500); Mean Corpuscular HGB Conc 33.2 % (30-36); Mean Corpuscular Hemoglobin 24.8 PG (26-34); Mean Corpuscular Volume 74.5 fL (80-100); Platelet Count 263 X10^3/uL (150-400)
[2025-05-01 08:07] LABS: Blood Urea Nitrogen 9 mg/dL (7-17); Calcium 8.9 mg/dL (8.4-10.2); Carbon Dioxide 15 mmol/L (22-32); Chloride 105 mmol/L (98-107); Estimated Glomerular Filt Rate > 60 mL/min (>60); Glucose 86 mg/dL (70-99); HEMOLYSIS 16 (0-50); Magnesium 2.4 mg/dL (1.6-2.3); Potassium 3.2 mmol/L (3.4-5.1); Sodium 137 mmol/L (137-145)
[2025-05-01] MEDS: POTASSIUM CHLORIDE IN WATER 10 MEQ/100 ML PIGGYBACK 100 MEQ IV ×4 (10:54→13:23)
--- NOTE | 2025-05-01 17:32 | P.PN_ITS ---
Subjective Subjective Interval history: 25-year-old female with history of cyclic vomiting and cannabinoid hyperemesis syndrome with ongoing marijuana use who was admitted 04/29/2025 with recurrent intractable nausea and vomiting. She reported she is presently 4 days into her present cycle of nausea and vomiting. She states typically nothing is particularly effective and she just has to wait it out. Her usual cycles last 7-8 days. She reported a history of prolonged QT syndrome. She reports she feels better today than yesterday. She was able to tolerate a popsicle a few hours ago. She has been using Benadryl for headache. Reglan has been the most effective for her nausea and vomiting. She has not had any emesis for several hours. Exam Vital Signs (past 8 hours): - 05/01/25 11:14 05/01/25 15:10 Temperature 98.1 F 97.8 F Pulse Rate 94 H 79 Respiratory Rate 16 16 Blood Pressure 122/85 122/77 Pulse Oximetry 100 100 Oxygen Delivery Method Room Air Oxygen Flow Rate 0 Narrative Exam Narrative: GEN: Adult female, pleasant, alert and oriented x3 NAD HEENT:NC, Face symmetric CHEST: Respiratory excursions symmetric, CTAB CV: RRR, no M/R/G ABD: Soft, mild epigastric tenderness/ND, BT present in all 4 quadrants, no organomegaly or masses EXTR: warm, well perfused, no C/C/E SKIN: warm and dry, no rash NEURO: Alert and oriented x 3, nonfocal Objective Labs 05/01/25 07:05 05/01/25 07:05 Labs: Laboratory Results - last 24 hr 05/01/25 07:05 WBC 11.5 H RBC 5.07 Hgb 12.6 Hct 37.8 MCV 74.5 L MCH 24.8 L MCHC 33.2 RDW 16.5 H Plt Count 263 Neut % (Auto) 70.5 Lymph % (Auto) 22.9 L [place] % (Auto) 6.1 Eos % (Auto) 0.1 L Baso % (Auto) 0.4 Neut # (Auto) 8100 H Lymph # (Auto) 2600 [place] # (Auto) 700 Eos # (Auto) 0 Baso # (Auto) 100 Sodium 137 Potassium 3.2 L Chloride 105 Carbon Dioxide 15 L BUN 9 Creatinine 0.63 Estimated GFR > 60 BUN/Creatinine Ratio 14.3 Glucose 86 Calcium 8.9 Magnesium 2.4 H [facility] Medical History Eating disorder in remission Vapes nicotine containing substance Prolonged QT interval Cannabis hyperemesis syndrome concurrent with and due to cannabis abuse Marijuana abuse Tear of lateral meniscus of right knee Tear of articular cartilage of right knee, current, initial encounter Anesthesia complication Anxiety and depression PTSD (post-traumatic stress disorder) COVID-19 virus infection ALL (acute lymphoid leukemia) in remission (2004) Nipple discharge in female (04/2021) Rectal bleeding (~05/2021) Nausea and vomiting History of leukemia Surgical History History of colonoscopy H/O arthroscopic knee surgery Hx of surgical procedure (04/01/06) Hx of surgical procedure (08/06/04) History of removal of Port-a-Cath (08/01/06) Social History household members: family Smoking Status: Current every day smoker second hand exposure: No alcohol intake: never substance use type: marijuana (vape, once a day) Assessment & Plan Assessment & Plan narrative: 1. Cyclic vomiting syndrome/cannabinoid hyperemesis syndrome Will continue antiemetics and IV fluids. She does have a history of prolonged QT syndrome. She was placed on telemetry yesterday. Her QT has been stable at 0.40. I have encouraged her to advocate with the nurses to have her QT check before she received any antiemetic as everything she is receiving can impact her QT in terms of prolongation. She is uncertain if she has prolonged QT at baseline or only when she has been receiving antiemetics. I have encouraged heard who have an EKG when she is at baseline after she establishes with a new PCP next year. If she is found to have prolonged QT even at her baseline state of health, I have advised she should consider getting a medic alert bracelet. She expresses understanding. 2. Hypokalemia Potassium remains low at 3.2 today, likely secondary to GI losses. Will continue to replete. 3. Prolonged QT As above will continue telemetry and monitor. 4. Leukocytosis White blood cell count stable at 11.5, likely reactive. 5. Hypercalcemia Likely secondary to dehydration. Normalized today. 6. Metabolic acidosis Bicarb is down to 15 today. Will increase IV fluid rate. We check labs in the morning. Code status Full Prophylaxis Low Lesley score Disposition Will discharge home when she is able to tolerate oral intake and maintain hydration Time-Based Coding :: [TOTAL MINUTES] spent with patient and on the chart (including review of chart, obtaining history, exam, reviewing outside data, placing orders, documenting exam and treatment plan, and counseling patient) on [DATE].
[2025-05-01] MEDS: LACTATED RINGERS 1,000 ML 150 ML IV (18:30)
[2025-05-02] MEDS: diphenhydrAMINE 50 MG/ML VIAL IV (00:43)
[2025-05-02] MEDS: HALOPERIDOL 5 MG/ML VIAL 2 MG IV (02:06)
[2025-05-02] MEDS: LACTATED RINGERS 1,000 ML 150 ML IV (03:41)
[2025-05-02 03:46] VITALS: BP 120/71; PULSE 71; RESP 16; TEMP 37; O2SAT 99
[2025-05-02 06:59] LABS: Add Manual Diff / Slide Review NO; Hematocrit 41.2 % (36-46); Hemoglobin 13.4 g/dL (12.0-16.0); Lymphocytes Absolute Auto 3500 /uL (1100-4500); Mean Corpuscular HGB Conc 32.5 % (30-36); Mean Corpuscular Hemoglobin 24.5 PG (26-34); Mean Corpuscular Volume 75.3 fL (80-100); Platelet Count 268 X10^3/uL (150-400)
[2025-05-02 07:00] VITALS: BP 127/77; PULSE 91; RESP 16; TEMP 36.4; O2SAT 98
[2025-05-02 07:09] LABS: Blood Urea Nitrogen 6 mg/dL (7-17); Calcium 9.1 mg/dL (8.4-10.2); Carbon Dioxide 24 mmol/L (22-32); Chloride 102 mmol/L (98-107); Estimated Glomerular Filt Rate > 60 mL/min (>60); Glucose 114 mg/dL (70-99); HEMOLYSIS 40 (0-50); Potassium 3.7 mmol/L (3.4-5.1); Sodium 139 mmol/L (137-145)
--- NOTE | 2025-05-02 09:40 | PM.DS.1 ---
History of Present Illness History of Present Illness Chief complaint: N/V x 4 days/dehydration Narrative: From H&P: 25-year-old female with past medical history of cyclic vomiting and marijuana use presents with severe nausea, vomiting. Per the patient's report, over the last 4 days the patient has increasing nausea and vomiting. The patient states that her last use of marijuana was 4 days ago. The patient states that she was unable to keep anything down today due to the severe nausea and vomiting. The patient also has some mild burning epigastric pain but denies any GI bleeding, fever, chills, dysuria, chest pain or shortness of breath. In the emergency room, the patient was hemodynamically stable. Labs shows WBC of 14 potassium 3.2 and the rest of the labs were relatively benign. Lipase was normal. The patient was given IV fluid and potassium replacement. IV antiemetics was also given. Due to ongoing symptoms our ER physician requested admission to observation for IV fluid and controlling patient's severe nausea and vomiting. Hospital course: She was treated symptomatically and was able to advance diet over the next 2 days. Her electrolytes were repleted as well. In the day of discharge she was at baseline and able to tolerate a general diet. IMAGING: APCT: Involuting left ovarian corpus luteum. No other CT abnormalities. DISCHARGE EXAM: NAD, alert and oriented. Fluent speech. Lungs are clear, normal rate and effort. Heart is regular, no murmur gallop or rub. Abdomen is soft, non distended. Extremities are free of edema. [N], the patient has documentation of a left ventricle ejection fracture less than or equal to 40%, or moderately or severely reduced left ventricle systolic function. [N], the patient has a history of heart transplant or left ventricular assist device (LVAD). [N], the patient was prescribed an SARAH inhibitor at discharge or is already being taken. The patient was not prescribed an SARAH-inhibitor because of the following exception: NA. [N], the patient was prescribed Metoprolol succinate, bisoprolol, or carvedilol at discharge. The patient was not prescribed Metoprolol succinate, bisoprolol, or carvedilol at discharge because of the following exception: NA. A/P: 1. Cyclic vomiting syndrome/cannabinoid hyperemesis syndrome, improved. 2. Hypokalemia, improved. 3.7 on day of discharge. 3. Prolonged QT, stable. As above will continue telemetry and monitor. 4. Leukocytosis, active. White blood cell count stable at 11.5, likely reactive. 5. Hypercalcemia, improved. 9.1 on day of discharge. Likely secondary to dehydration. 6. Metabolic acidosis, improved. 24 on day of discharge. PLAN: -discharge home, follow up for recurrent symptoms. She was had multiple episodes over the last 5 years. Discharge Providers Provider Date of admission: 05/01/25 12:19 Discharge Date: 05/02/25 Discharge provider: Hugo Bello MD Exam Vital Signs (past 8 hours): - 05/02/25 03:46 05/02/25 07:00 Temperature 98.6 F 97.6 F Pulse Rate 71 91 H Respiratory Rate 16 16 Blood Pressure 120/71 127/77 Pulse Oximetry 99 98 Oxygen Delivery Method Room Air Oxygen Flow Rate 0 Objective Labs 05/02/25 06:45 05/02/25 06:45 Labs: Laboratory Results - last 24 hr 05/02/25 06:45 WBC 12.1 H RBC 5.47 H Hgb 13.4 Hct 41.2 MCV 75.3 L MCH 24.5 L MCHC 32.5 RDW 15.9 H Plt Count 268 Neut % (Auto) 63.8 Lymph % (Auto) 29.2 [place] % (Auto) 5.9 Eos % (Auto) 0.4 L Baso % (Auto) 0.7 Neut # (Auto) 7700 H Lymph # (Auto) 3500 [place] # (Auto) 700 Eos # (Auto) 100 Baso # (Auto) 100 Sodium 139 Potassium 3.7 Chloride 102 Carbon Dioxide 24 BUN 6 L Creatinine 0.61 Estimated GFR > 60 BUN/Creatinine Ratio 9.8 Glucose 114 H Calcium 9.1 PFSH Medical History Eating disorder in remission Vapes nicotine containing substance Prolonged QT interval Cannabis hyperemesis syndrome concurrent with and due to cannabis abuse Marijuana abuse Tear of lateral meniscus of right knee Tear of articular cartilage of right knee, current, initial encounter Anesthesia complication Anxiety and depression PTSD (post-traumatic stress disorder) COVID-19 virus infection ALL (acute lymphoid leukemia) in remission (2004) Nipple discharge in female (04/2021) Rectal bleeding (~05/2021) Nausea and vomiting History of leukemia Surgical History History of colonoscopy H/O arthroscopic knee surgery Hx of surgical procedure (04/01/06) Hx of surgical procedure (08/06/04) History of removal of Port-a-Cath (08/01/06) Social History household members: family Smoking Status: Current every day smoker second hand exposure: No alcohol intake: never substance use type: marijuana (vape, once a day) Discharge Plan Discharge Plan Patient Disposition: Home Discharge orders & Medications Prescriptions: Continued haloperidol 1 mg tablet 1 mg PO DAILY PRN (Reason: nausea and vomiting) Discharge Health Status Multidrug resistant organism: No MDRO Diet/Activity/Treatments Diet: Diet as Tolerated Visit Report/Discharge Packet Instructions: DI for Nausea -- Adult Stand Alone Forms: Patient Portal/API
--- NOTE | 2025-05-02 12:18 | PC.NURSE ---
Patient is A&OX4, VSS, afebrile on RA. She reportedly tolerated cereal well during the bias binding folder. She reports only mild nausea and is able to tolerate some llquids this am. She showers per request and reports feeling much better. MD evaluates patient at bedside and clears her medically for discharge home today. Her father arrived this morning to transport her home. She is escorted to private vehicle for discharge home with all of her belongings at approximately 1045 a.m.
--- NOTE | 2025-05-02 14:45 | CM.DPC ---
DCP Discharge Home Per MD, pt improved and medically stable to discharge home today with recommendation of cessation of THC and outpt f/u. Per AD Counselors, pt currently Self Pay as her [employer] not active. Per RN, pt given d/c instructions and taken to POV and no concerns noted. Fariba Prince MSW
== END 2025-05-02 10:40 | disposition home or self-care (01) | DRG 394 ==
LOC: ED 19:50 → AC 20:13
PROVIDERS: Emergency Medicine; Family Medicine; Physician Assistant; Admitting Provider Internal Medicine; Emergency Provider Emergency Medicine; Referring Provider Emergency Medicine; Visit Provider Internal Medicine
DX: R11.15 Cyclical vomiting syndrome unrelated to migraine (principal); E87.20 Acidosis, unspecified; E87.6 Hypokalemia; R94.31 Abnormal electrocardiogram [ECG] [EKG]; F12.90 Cannabis use, unspecified, uncomplicated; R51.9 Headache, unspecified; R11.16 Cannabis hyperemesis syndrome; E83.52 Hypercalcemia; E86.0 Dehydration
CPT/HCPCS: 36415; 80048; 80053; 81003; 81015; 81025; 83690; 83735; 85025; 93005; 96361; 96365; 96366; 96375; 99284; G0378; J0780; J1200; J1630; J1790; J2060; J2405; J2765; J7030; J7120

== ENCOUNTER 2025-05-06 10:13 | Emergency (ER) | payer SELFPAY ==
[2025-04-29 21:43] VITALS: BMI 29.4
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
[2025-05-06 10:17] VITALS: BP 128/88; PULSE 96; RESP 14; TEMP 36.4; O2SAT 99; BMI 29.2
[2025-05-06] MEDS: ONDANSETRON 4 MG/2 ML INJ IV (10:22)
[2025-05-06 10:40] LABS: Ictotest Urine Negative (Negative)
[2025-05-06] MEDS: SODIUM CHLORIDE 0.9% 1,000 ML 1000 ML IV ×2 (10:45→13:29)
[2025-05-06 11:07] LABS: Add Manual Diff / Slide Review NO; Hematocrit 43.8 % (36-46); Hemoglobin 14.6 g/dL (12.0-16.0); Lymphocytes Absolute Auto 1600 /uL (1100-4500); Mean Corpuscular HGB Conc 33.4 % (30-36); Mean Corpuscular Hemoglobin 24.9 PG (26-34); Mean Corpuscular Volume 74.7 fL (80-100); Platelet Count 319 X10^3/uL (150-400)
[2025-05-06 11:24] LABS: Alanine Aminotransferase 40 IU/L (<35); Albumin 5.7 g/dL (3.5-5.0); Albumin Globulin Ratio 1.6 (1.0-2.8); Alkaline Phosphatase 83 U/L (38-126); Blood Urea Nitrogen 11 mg/dL (7-17); Calcium 10.5 mg/dL (8.4-10.2); Carbon Dioxide 21 mmol/L (22-32); Chloride 99 mmol/L (98-107); Estimated Glomerular Filt Rate > 60 mL/min (>60); Globulin 3.6 g/dL (1.7-4.1); Glucose 118 mg/dL (70-99); HEMOLYSIS < 15 (0-50); Lipase 102 U/L (23-300); Potassium 3.6 mmol/L (3.4-5.1); Sodium 139 mmol/L (137-145); Total Protein 9.3 g/dL (6.3-8.2)
--- NOTE | 2025-05-06 11:36 | ED.NAVMDI ---
HPI - Nausea/Vomiting/Diarrhea <Lorie Dalton PA-C - Last Filed: 05/06/25 16:48> General Chief complaint: Nausea/Vomiting/Diarrhea Stated complaint: n/v x 2 days Time Seen by Provider: 05/06/25 11:02 Mode of arrival: Ambulatory History of Present Illness HPI Narrative: Katherine Norris is a pleasant 25-year-old female with a past medical history of cyclic vomiting syndrome, regular marijuana use who presents to the emergency department for persistent nausea and vomiting x2 days. She was discharged from the emergency department just 4 days ago for cyclic vomiting. She has not used marijuana in 8 days. States that when she was discharged from the hospital 4 days ago she did well at home for 2 days and then her symptoms returned. She has not been able to keep down any food or fluids for the last 2 days. She reports that her symptoms feel identical to prior cyclic vomiting episodes, she has mild epigastric discomfort however no real abdominal pain, no hematemesis, melena, hematochezia, diarrhea, dysuria, hematuria, chest pain, shortness of breath, fevers, chills. Related Data Home Medications ?Medication ?Instructions ?Recorded ?Confirmed haloperidol 1 mg tablet 1 mg PO DAILY PRN nausea and 01/31/25 04/29/25 vomiting Previous Rx's ?Medication ?Instructions ?Recorded lorazepam 0.5 mg tablet (Ativan) 0.5 mg PO BEDTIME PRN nausea and 05/06/25 vomiting #4 tabs promethazine 12.5 mg rectal 12.5 mg SC TID PRN nausea and 05/06/25 suppository vomiting #12 ea Allergies Allergy/AdvReac Type Severity Reaction Status Date / Time vancomycin Allergy Severe Red man Verified 05/06/25 10:17 syndrome Review of Systems <Lorie Dalton PA-C - Last Filed: 05/06/25 16:48> Review of Systems ROS Unobtainable: All systems reviewed & are unremarkable except as noted in HPI and below Patient History <Lorie Dalton PA-C - Last Filed: 05/06/25 16:48> Medical History Eating disorder in remission Vapes nicotine containing substance Prolonged QT interval Cannabis hyperemesis syndrome concurrent with and due to cannabis abuse Marijuana abuse Tear of lateral meniscus of right knee Tear of articular cartilage of right knee, current, initial encounter Anesthesia complication Anxiety and depression PTSD (post-traumatic stress disorder) COVID-19 virus infection ALL (acute lymphoid leukemia) in remission (2004) Nipple discharge in female (04/2021) Rectal bleeding (~05/2021) Nausea and vomiting History of leukemia Surgical History History of colonoscopy H/O arthroscopic knee surgery Hx of surgical procedure (04/01/06) Hx of surgical procedure (08/06/04) History of removal of Port-a-Cath (08/01/06) Social History household members: family Smoking Status: Current every day smoker second hand exposure: No alcohol intake: never substance use type: marijuana (vape, once a day) Smoking Status: Current every day smoker tobacco type: vaping alcohol intake frequency: a few times a month Exam <Lorie Dalton PA-C - Last Filed: 05/06/25 16:48> Narrative Exam Narrative: GENERAL: 25 year old patient appears stated age. Well-developed patient, in no acute distress. Appears fatigued. HEAD: Atraumatic. Normocephalic. EYES: No scleral icterus. No injection or drainage. NECK: Trachea midline. Cervical ROM intact. CARDIOVASCULAR: Regular rate and rhythm. RESPIRATORY: ?Nonlabored respirations. ?Speaking in clear, full sentences. ?Clear to auscultation. Breath sounds equal bilaterally. No wheezes, rales, or rhonchi. ? GASTROINTESTINAL: Abdomen soft, non-tender, nondistended. BS present. EXTREMITIES: No LE edema. NEURO: AOx3. ?Clear speech. ?Moves all 4 extremities appropriately. SKIN: No rash or erythema of visible areas Initial Vital Signs Initial Vital Signs: Vital Signs Temperature 97.5 F L 05/06/25 10:17 Pulse Rate 96 H 05/06/25 10:17 Respiratory Rate 14 05/06/25 10:17 Blood Pressure 128/88 05/06/25 10:17 Pulse Oximetry 99 05/06/25 10:17 Oxygen Delivery Method Room Air 05/06/25 10:17 <Greta Fine MD - Last Filed: 05/06/25 17:33> Initial Vital Signs Initial Vital Signs: Vital Signs Temperature 97.5 F L 05/06/25 10:17 Pulse Rate 96 H 05/06/25 10:17 Respiratory Rate 14 05/06/25 10:17 Blood Pressure 128/88 05/06/25 10:17 Pulse Oximetry 99 05/06/25 10:17 Oxygen Delivery Method Room Air 05/06/25 10:17 Course <Lorie Dalton PA-C - Last Filed: 05/06/25 16:48> Orders Ordered: ED Orders 05/06/25 10:27 Ictotest Urine Stat Urine Microscopic Stat 05/06/25 10:37 Complete Blood Count AUTO DIFF Stat Comprehensive Metabolic Panel Stat Lipase Stat 05/06/25 11:38 EKG-12 Lead Stat Discontinued Medications Diphenhydramine HCl (Diphenhydramine 50 Mg/Ml Vial) 25 mg IV NOW ONE Stop: 05/06/25 11:50 Last Admin: 05/06/25 12:49 Dose: 25 mg Documented By: KEDAR Haloperidol (Haloperidol 5 Mg/Ml Vial) 2 mg IV Q2HR PRN PRN Reason: Vomiting Last Admin: 05/06/25 13:28 Dose: 2 mg Documented By: KEDAR Sodium Chloride (Normal Saline 0.9%) 1,000 mls @ 1,000 mls/hr IV BOLUS ONE Stop: 05/06/25 11:58 Last Infusion: 05/06/25 11:48 Dose: Infused Documented By: Admin: 05/06/25 10:45 Dose: 1,000 mls/hr Documented By: GOLDY Sodium Chloride (Normal Saline 0.9%) 1,000 mls @ 1,000 mls/hr IV BOLUS ONE Stop: 05/06/25 14:12 Last Infusion: 05/06/25 14:36 Dose: Infused Documented By: Admin: 05/06/25 13:29 Dose: 1,000 mls/hr Documented By: KEDAR Lorazepam (Lorazepam 2 Mg/Ml Inj) 0.25 mg IV Q2HR PRN PRN Reason: Anxiety Last Admin: 05/06/25 12:04 Dose: 0.25 mg Documented By: GOLDY Ondansetron HCl (Ondansetron 4 Mg/2 Ml Inj) 4 mg IV NOW PRN PRN Reason: Nausea And Vomiting Last Admin: 05/06/25 10:22 Dose: 4 mg Documented By: ELDA Ondansetron HCl (Ondansetron 4 Mg Odt) 4 mg PO NOW PRN PRN Reason: Nausea And Vomiting Vital Signs Vital signs: Vital Signs - 8 hr 05/06/25 10:17 05/06/25 12:56 05/06/25 15:14 Temperature 97.5 F L Pulse Rate 96 H 82 94 H Respiratory Rate 14 16 16 Blood Pressure 128/88 108/66 112/55 L Pulse Oximetry 99 99 100 Oxygen Delivery Method Room Air Room Air Room Air <Greta Fine MD - Last Filed: 05/06/25 17:33> Orders Ordered: ED Orders 05/06/25 10:27 Ictotest Urine Stat Urine Microscopic Stat 05/06/25 10:37 Complete Blood Count AUTO DIFF Stat Comprehensive Metabolic Panel Stat Lipase Stat 05/06/25 11:38 EKG-12 Lead Stat Discontinued Medications Diphenhydramine HCl (Diphenhydramine 50 Mg/Ml Vial) 25 mg IV NOW ONE Stop: 05/06/25 11:50 Last Admin: 05/06/25 12:49 Dose: 25 mg Documented By: KEDAR Haloperidol (Haloperidol 5 Mg/Ml Vial) 2 mg IV Q2HR PRN PRN Reason: Vomiting Last Admin: 05/06/25 13:28 Dose: 2 mg Documented By: KEDAR Sodium Chloride (Normal Saline 0.9%) 1,000 mls @ 1,000 mls/hr IV BOLUS ONE Stop: 05/06/25 11:58 Last Infusion: 05/06/25 11:48 Dose: Infused Documented By: Admin: 05/06/25 10:45 Dose: 1,000 mls/hr Documented By: GOLDY Sodium Chloride (Normal Saline 0.9%) 1,000 mls @ 1,000 mls/hr IV BOLUS ONE Stop: 05/06/25 14:12 Last Infusion: 05/06/25 14:36 Dose: Infused Documented By: Admin: 05/06/25 13:29 Dose: 1,000 mls/hr Documented By: KEDAR Lorazepam (Lorazepam 2 Mg/Ml Inj) 0.25 mg IV Q2HR PRN PRN Reason: Anxiety Last Admin: 05/06/25 12:04 Dose: 0.25 mg Documented By: GOLDY Ondansetron HCl (Ondansetron 4 Mg/2 Ml Inj) 4 mg IV NOW PRN PRN Reason: Nausea And Vomiting Last Admin: 05/06/25 10:22 Dose: 4 mg Documented By: ELDA Ondansetron HCl (Ondansetron 4 Mg Odt) 4 mg PO NOW PRN PRN Reason: Nausea And Vomiting Vital Signs Vital signs: Vital Signs - 8 hr 05/06/25 10:17 05/06/25 12:56 05/06/25 15:14 Temperature 97.5 F L Pulse Rate 96 H 82 94 H Respiratory Rate 14 16 16 Blood Pressure 128/88 108/66 112/55 L Pulse Oximetry 99 99 100 Oxygen Delivery Method Room Air Room Air Room Air MDM - Nausea/Vomiting/Diarrhea <Lorie Dalton PA-C - Last Filed: 05/06/25 16:48> Medical Records Attestation: I reviewed the patient's medical records. Lab Data 05/06/25 10:37 05/06/25 10:37 Labs: Lab Results 05/06/25 05/06/25 Range/Units 10:27 10:37 WBC 13.4 H (4.5-11.0) X10^3/uL RBC 5.86 H (4.0-5.2) X10^6/uL Hgb 14.6 (12.0-16.0) g/dL Hct 43.8 (36-46) % MCV 74.7 L (80-100) fL MCH 24.9 L (26-34) PG MCHC 33.4 (30-36) % RDW 16.8 H (11.6-14.8) % Plt Count 319 (150-400) X10^3/uL Neut % (Auto) 83.5 H (50-75) % Lymph % (Auto) 11.8 L (25-40) % [place] % (Auto) 4.2 (3-14) % Eos % (Auto) 0.1 L (2-4) % Baso % (Auto) 0.4 (0-2) % Neut # (Auto) 82793 H (2600-4460) /uL Lymph # (Auto) 1600 (8965-4738) /uL [place] # (Auto) 600 (0-900) /uL Eos # (Auto) 0 (0-450) /uL Baso # (Auto) 100 (0-100) /uL Sodium 139 (137-145) mmol/L Potassium 3.6 (3.4-5.1) mmol/L Chloride 99 (98-107) mmol/L Carbon Dioxide 21 L (22-32) mmol/L BUN 11 (7-17) mg/dL Creatinine 0.72 (0.52-1.04) mg/dL Estimated GFR > 60 (>60) mL/min BUN/Creatinine Ratio 15.3 (6-22) Glucose 118 H (70-99) mg/dL Calcium 10.5 H (8.4-10.2) mg/dL Total Bilirubin 0.8 (0.2-1.3) mg/dL AST 29 (14-36) IU/L ALT 40 H (<35) IU/L Alkaline Phosphatase 83 (38-126) U/L Total Protein 9.3 H (6.3-8.2) g/dL Albumin 5.7 H (3.5-5.0) g/dL Globulin 3.6 (1.7-4.1) g/dL Albumin/Globulin Ratio 1.6 (1.0-2.8) Lipase 102 D (23-300) U/L Ur Bilirubin Confirm Negative (Negative) Urine RBC 0-1/hpf (0-5/HPF) Urine WBC 0-1/hpf (0-5/HPF) Ur Squamous Epith Cells 0-1 /hpf (0-5/HPF) Urine Bacteria Occasional (0-1) (None) Urine Mucus 2+ H (Negative) Ur Culture Indicated? Cult not indicated Vol Urine Centrifuged 10ml (spun) Point of Care Testing Test Results Negative Urine Dip Bedside Urine Glucose Negative Bedside Urine Bilirubin + 1 Bedside Urine Ketone ++ 40 Urine Specific [place] 1.010 Bedside Urine Occult Blood - Negative Bedside Urine pH 7.5 Bedside Urine Protein ++ 100 Bedside Urine Urobilinogen - Negative Bedside Urine Nitrite - Negative Bedside Urine Leukocytes +/- 15 Esterase MDM Narrative Medical decision making narrative: 25-year-old female with a past medical history of cyclic vomiting syndrome, regular marijuana use who presents to the emergency department for persistent nausea and vomiting x2 days. Differential diagnosis includes but is not limited to cyclic vomiting syndrome, cannabinoid hyperemesis syndrome, gastritis, electrolyte derangement, dehydration, UTI, colitis, etc. On exam the patient is in no acute distress, nontoxic appearing but she is very fatigued appearing. Heart rate slightly elevated. Afebrile. She was just discharged from the hospital 4 days ago and only had improvement of symptoms for 2 days. Reports that her symptoms typically improve with antipsychotics. Baseline labs and IV fluids Zofran initiated in triage. We will add on EKG as patient has persistent symptoms. Labs reveal WBC count 13.4, hemoglobin 14.6, platelets 319. Sodium 139, potassium 3.6, BUN 11 creatinine 0.72. Glucose 118. Very slight elevation of ALT. Normal lipase 102. test negative. Urinalysis reveals ketones, protein, leuk esterase. EKG reveals normal sinus rhythm, 72 beats per minute, QTC 438. Patient treated with 0.25 mg Ativan, 2 mg haloperidol, 25 mg Benadryl, 2 L IV fluids and she is feeling much better. Passed p.o. challenge. Wants to go home. Discussed prescription of rectal Phenergan to use for breakthrough vomiting, she also requested script for Ativan to help with nausea vomiting and sleep, she was sent a few doses, discussed risks of benzodiazepines with both her and her mother. Discussed ER return precautions and PCP follow up, marijuana cessation. She verbalized understanding of all information agreeable with the plan. She is tolerating p.o., abdominal exam benign, stable for discharge home. <Greta Fine MD - Last Filed: 05/06/25 17:33> Lab Data Labs: Lab Results 05/06/25 05/06/25 Range/Units 10:27 10:37 WBC 13.4 H (4.5-11.0) X10^3/uL RBC 5.86 H (4.0-5.2) X10^6/uL Hgb 14.6 (12.0-16.0) g/dL Hct 43.8 (36-46) % MCV 74.7 L (80-100) fL MCH 24.9 L (26-34) PG MCHC 33.4 (30-36) % RDW 16.8 H (11.6-14.8) % Plt Count 319 (150-400) X10^3/uL Neut % (Auto) 83.5 H (50-75) % Lymph % (Auto) 11.8 L (25-40) % [place] % (Auto) 4.2 (3-14) % Eos % (Auto) 0.1 L (2-4) % Baso % (Auto) 0.4 (0-2) % Neut # (Auto) 82484 H (1302-5143) /uL Lymph # (Auto) 1600 (1947-7901) /uL [place] # (Auto) 600 (0-900) /uL Eos # (Auto) 0 (0-450) /uL Baso # (Auto) 100 (0-100) /uL Sodium 139 (137-145) mmol/L Potassium 3.6 (3.4-5.1) mmol/L Chloride 99 (98-107) mmol/L Carbon Dioxide 21 L (22-32) mmol/L BUN 11 (7-17) mg/dL Creatinine 0.72 (0.52-1.04) mg/dL Estimated GFR > 60 (>60) mL/min BUN/Creatinine Ratio 15.3 (6-22) Glucose 118 H (70-99) mg/dL Calcium 10.5 H (8.4-10.2) mg/dL Total Bilirubin 0.8 (0.2-1.3) mg/dL AST 29 (14-36) IU/L ALT 40 H (<35) IU/L Alkaline Phosphatase 83 (38-126) U/L Total Protein 9.3 H (6.3-8.2) g/dL Albumin 5.7 H (3.5-5.0) g/dL Globulin 3.6 (1.7-4.1) g/dL Albumin/Globulin Ratio 1.6 (1.0-2.8) Lipase 102 D (23-300) U/L Ur Bilirubin Confirm Negative (Negative) Urine RBC 0-1/hpf (0-5/HPF) Urine WBC 0-1/hpf (0-5/HPF) Ur Squamous Epith Cells 0-1 /hpf (0-5/HPF) Urine Bacteria Occasional (0-1) (None) Urine Mucus 2+ H (Negative) Ur Culture Indicated? Cult not indicated Vol Urine Centrifuged 10ml (spun) Point of Care Testing Test Results Negative Urine Dip Bedside Urine Glucose Negative Bedside Urine Bilirubin + 1 Bedside Urine Ketone ++ 40 Urine Specific [place] 1.010 Bedside Urine Occult Blood - Negative Bedside Urine pH 7.5 Bedside Urine Protein ++ 100 Bedside Urine Urobilinogen - Negative Bedside Urine Nitrite - Negative Bedside Urine Leukocytes +/- 15 Esterase Discharge Plan Departure Patient Disposition: Home Clinical Impression: Cyclical vomiting Instructions: DI for Vomiting -- Adult Activity Restrictions/Additional Instructions: Dear Ms. Norris, Thank you for coming to the emergency department. Today you were evaluated for cyclic vomiting. I am glad that you are feeling better. Your white blood cell count was slightly elevated today and this is something that you should be rechecked for with your primary care doctor. You have been prescribed a rectal nausea medication called Phenergan. You have also been prescribed a few doses of Ativan which is a benzodiazepine to help with nausea/vomiting at night and was sleeping. Please be aware that this medication can be addictive and can cause withdrawal if taken incorrectly. You have been prescribed a short course of benzodiazepine medications. These are potentially dangerous and addictive medications that should be used carefully. While on these medications you cannot drive or operate heavy machinery. Additionally, you cannot sign legal documents or perform any duties such as this. Please understand that we cannot provide further refills of benzodiazepine or controlled substances through the ED and your pain management will need to be through your Primary Care Provider Please follow up with your primary care doctor within the next 2-3 days for ER follow-up. (If you do not have a PCP you can call [phone]. ?to schedule an appointment with an [facility] Primary Care Provider) IF YOU DEVELOP ANY NEW OR WORSENING SYMPTOMS, RETURN TO THE ER! Please read the attached instructions, they highlight more specific treatments and interventions for you at home. Thank you for letting me participate in your care, Lorie Dalton PA-C Prescriptions: New promethazine 12.5 mg suppository 12.5 mg SC TID PRN (Reason: nausea and vomiting) Qty: 12 0RF Rx Instructions: do not give 3rd daily dose after evening meal or within 4hr before bed lorazepam [Ativan] 0.5 mg tablet 0.5 mg PO BEDTIME PRN (Reason: nausea and vomiting) Qty: 4 0RF No Action haloperidol 1 mg tablet 1 mg PO DAILY PRN (Reason: nausea and vomiting) Stand Alone Forms: Patient Portal/API ED Sign-out <Greta Fine MD - Last Filed: 05/06/25 17:33> Cosign ED Attending Coshollyature Attestation: I reviewed the patient?s history, physical examination findings, diagnostic results, and the documented plan of care. I was not directly involved in the patient?s management but was available for consultation. I agree with the assessment and plan as outlined by the advanced practice provider. Greta Fine MD Emergency Medicine Attending 16:48 05/06/2025
--- NOTE | 2025-05-06 11:38 | EKG_ITS ---
[address] [id number] [address] [address] Test Date: 2025-05-06 Pat Name: Katherine Norris Department: Room: Gender: Female Architecture Analyst: KARLA : 2000 Requested By: Order Number: [id number] Reading MD: Parish Brownlee MD Measurements Intervals [place] Rate: 72 P: 31 RI: 136 QRS: 65 QRSD: 86 T: 32 QT: 400 QTc: 438 Interpretive Statements Normal sinus rhythm with sinus arrhythmia Electronically Signed On 05-06-2025 12:00:37 PST by Parish Brownlee MD
[2025-05-06] MEDS: diphenhydrAMINE 50 MG/ML VIAL 25 MG IV (12:49)
[2025-05-06 12:56] VITALS: BP 108/66; PULSE 82; RESP 16; O2SAT 99
[2025-05-06 13:12] LABS: Culture Indicated Urine Cult Not Indicated
[2025-05-06] MEDS: HALOPERIDOL 5 MG/ML VIAL 2 MG IV (13:28)
[2025-05-06 15:14] VITALS: BP 112/55; PULSE 94; RESP 16; O2SAT 100
== END 2025-05-06 16:10 | disposition home or self-care (01) ==
PROVIDERS: Student in an Organized Health Care Education/Training Program; Emergency Provider Physician Assistant
DX: R11.15 Cyclical vomiting syndrome unrelated to migraine (principal); R19.7 Diarrhea, unspecified; R10.13 Epigastric pain; Z87.891 Personal history of nicotine dependence
CPT/HCPCS: 36415; 80053; 81003; 81015; 81025; 83690; 85025; 93005; 93010; 96361; 96374; 96375; 99284; J1200; J1630; J2060; J2405; J7030